=== PATIENT | female | born 1990 ===

== ENCOUNTER 2019-04-04 20:48 | Inpatient (IN) | payer MEDICAID ==
[2019-04-04 21:03] VITALS: BMI 35.1
[2019-04-04] MEDS ORDERED: Sodium Chloride 0.9% 1,000 ML IV STA ×2 (21:38→22:49)
[2019-04-04 22:00] LABS: BASO # 0.03 K/mm3 (0.0-2.0); BASO % 0.2 % (0.0-3.0); HEMOGLOBIN 11.7 g/dL (12.0-16.0); LYMPH # 1.4 (1.2-3.4); LYMPH % 8.8 % (22.0-35.0); MEAN CELL VOLUME 82.4 fl (80.0-105.0); MEAN CORPUSCULAR HEMOGLOBIN 28.3 pg (25.0-35.0); MEAN CORPUSCULAR HGB CONC 34.3 g/dl (31.0-37.0); MONO # 0.9 (0.1-0.6); MONO % 5.6 % (1.0-6.0); RBC 4.14 10^6/uL (3.5-6.1); WHITE BLOOD COUNT 15.8 10^3/uL (4.5-11.0)
[2019-04-04 22:05] LABS: PH,URINE 6.5 (4.7-8.0); URINE BILIRUBIN SMALL (NEGATIVE); URINE BLOOD MODERATE (NEGATIVE); URINE GLUCOSE (UA) NEGATIVE (NEGATIVE); URINE LEUKOCYTE ESTERASE LARGE Leu/uL (NEGATIVE); URINE PROTEIN 30 mg/dL (<30 mg/dL)
[2019-04-04 22:06] LABS: URINE APPEARANCE SLIGHT-CLOUDY (CLEAR); URINE COLOR YELLOW (YELLOW)
--- NOTE | 2019-04-04 22:07 | ED PDOC ---
Arrival/HPI <Gene Reed - Last Filed: 04/05/19 00:35> - General Historian: Patient - History of Present Illness Narrative History of Present Illness (Text): 04/04/19 22:03 28 y/o female with no significant PMH presents to the ED c/o right sided back pain, fever, and vomiting x 3 days. Pt saw PMD 3 days ago and was prescribed ibuprofen, flexeril, and zofran as well as given a steroid shot in the office for back pain. Admits to 2-3 episodes of nonbloody, nonbilious emesis daily. Today developed SOB with pleuritic substernal chest pain. Currently menstruat ing. No recent travel, immobilization, surgery, history of cancer, or OCP use. Denies hematemesis, cough, hemoptysis, calf pain/swelling, palpitations, headache, dizziness, vision changes, urinary symptoms, saddle anesthesia, incontinence, or any other associated symptoms. <Yuli Hernandez - Last Filed: 04/05/19 03:15> - General Chief Complaint: Fever Time Seen by Provider: 04/04/19 20:56 Past Medical History - Provider Review Nursing Documentation Reviewed: Yes - Infectious Disease Hx of Infectious Diseases: None - Genitourinary/Gynecological Other/Comment: fibroids - Psychiatric Hx Substance Use: No - Surgical History Hx Section: Yes - Anesthesia Hx Anesthesia: No <Yuli Hernandez - Last Filed: 04/05/19 03:15> Family/Social History - Physician Review Nursing Documentation Reviewed: Yes Family/Social History: Unknown Family HX Smoking Status: Former Smoker Hx Alcohol Use: No Hx Substance Use: No <Yuli Hernandez - Last Filed: 04/05/19 03:15> Allergies/Home Meds <Gene Reed - Last Filed: 04/05/19 00:35> <Yuli Hernandez - Last Filed: 04/05/19 03:15> Allergies/Adverse Reactions: Allergies No Known Allergies Allergy (Verified 04/04/19 21:03) Review of Systems - Review of Systems Constitutional: Fevers Eyes: Normal. absent: Vision Changes, Eye Pain ENT: Normal. absent: Sore Throat, Sinus Congestion Respiratory: SOB. absent: Cough, Sputum, Wheezing Cardiovascular: Chest Pain. absent: Palpitations, Syncope Gastrointestinal: Nausea, Vomiting. absent: Abdominal Pain Genitourinary Female: Normal. absent: Dysuria, Frequency, Vaginal Bleeding, Vaginal Discharge Musculoskeletal: Back Pain Skin: Normal. absent: Rash Neurological: Normal. absent: Headache, Dizziness, Focal Weakness <Yuli Hernandez - Last Filed: 04/05/19 03:15> Physical Exam Vital Signs Temp Pulse Resp BP Pulse Ox 04/04/19 22:20 101.4 F H 04/04/19 21:25 98.6 F 123 H 18 148/82 94 L <Gene Reed - Last Filed: 04/05/19 00:35> Vital Signs Reviewed: Yes Vital Signs Temp Pulse Resp Pulse Ox 04/04/19 21:25 98.6 F 123 H 18 94 L Temperature: Afebrile Blood Pressure: Normal Pulse: Regular Respiratory Rate: Normal Appearance: Positive for: Non-Toxic, Ill-Appearing, Uncomfortable Pain Distress: None Mental Status: Positive for: Alert and Oriented X 3 - Systems Exam Head: Present: Atraumatic, Normocephalic Pupils: Present: PERRL Extroacular Muscles: Present: EOMI Conjunctiva: Present: Normal Mouth: Present: Moist Mucous Membranes Neck: Present: Normal Range of Motion. No: Meningeal Signs Respiratory/Chest: Present: Good Air Exchange, Rhonchi (intermittent in left lower lobe). No: Respiratory Distress, Accessory Muscle Use Cardiovascular: Present: Regular Rate and Rhythm, Normal S1, S2, Peripheal Pulses Present Abdomen: Present: Normal Bowel Sounds. No: Tenderness, Distention, Peritoneal Signs Back: Present: CVA Tenderness (right) Upper Extremity: Present: Normal Inspection, Normal ROM, NORMAL PULSES, Neurovascularly Intact, Capillary Refill < 2s. No: Cyanosis, Edema, Temperature Abnormalties Lower Extremity: Present: Normal Inspection, NORMAL PULSES, Normal ROM, Neurovascularly Intact, Capillary Refill < 2 s. No: Edema, Temperature Abnormalties Neurological: Present: GCS=15, CN II-XII Intact, Speech Normal, Motor Func Grossly Intact, Normal Sensory Function, Gait Normal Skin: Present: Warm, Dry, Normal Color. No: Rashes Psychiatric: Present: Alert, Oriented x 3, Normal Insight, Normal Concentration, Normal Affect, Normal Mood <Yuli Hernandez - Last Filed: 04/05/19 03:15> Medical Decision Making - Lab Interpretations Lab Results: pO2 44 mm/Hg (30-55) 04/04/19 21:55 VBG pH 7.47 (7.32-7.43) H 04/04/19 21:55 VBG pCO2 29.0 (40-60) L 04/04/19 21:55 VBG HCO3 21.1 mmol/l (21-28) 04/04/19 21:55 VBG Total CO2 22.0 mmol.L (22-28) 04/04/19 21:55 VBG O2 Sat (Calc) 81.9 % (40-65) H 04/04/19 21:55 VBG Base Excess -1.5 mmol/L (0.0-2.0) L 04/04/19 21:55 VBG Potassium 2.8 mmol/L (3.6-5.2) L 04/04/19 21:55 Sodium 132.0 mmol/L (132-148) 04/04/19 21:55 Chloride 100.0 mmol/L (98-107) 04/04/19 21:55 Glucose 97 mg/dl (65-105) 04/04/19 21:55 Lactate 1.6 mmol/L (0.7-2.1) 04/04/19 21:55 FiO2 21.0 % 04/04/19 21:55 Crit Value Called To Scout 04/04/19 21:55 Crit Value Called By Penny 04/04/19 21:55 Blood Gas Notified Time 220804/04/19 21:55 PT 16.9 SECONDS (9.4-12.5) H 04/04/19 21:56 INR 1.52 04/04/19 21:56 APTT 26.9 Seconds (26.9-38.3) 04/04/19 21:56 D-Dimer, Quantitative 2023 ng/mlDDU (0-243) H 04/04/19 21:56 Troponin I < 0.01 ng/mL 04/04/19 21:56 Total Bilirubin 2.6 mg/dL (0.2-1.3) H 04/04/19 21:56 AST 61 U/L (14-36) H 04/04/19 21:56 ALT 43 U/L (7-56) 04/04/19 21:56 Alkaline Phosphatase 296 U/L (38-126) H 04/04/19 21:56 Total Protein 6.6 g/dL (5.8-8.3) 04/04/19 21:56 Albumin 3.0 g/dL (3.0-4.8) 04/04/19 21:56 Globulin 3.7 gm/dL 04/04/19 21:56 Albumin/Globulin Ratio 0.8 (1.1-1.8) L 04/04/19 21:56 Lipase 45 U/L (23-300) 04/04/19 21:56 Urine Color Yellow (YELLOW) 04/04/19 21:56 Urine Appearance Slight-cloudy (CLEAR) 04/04/19 21:56 Urine pH 6.5 (4.7-8.0) 04/04/19 21:56 Ur Specific [place] 1.010 (1.005-1.035) 04/04/19 21:56 Urine Protein 30 mg/dL (<30 mg/dL) H 04/04/19 21:56 Urine Glucose (UA) Negative mg/dL (NEGATIVE) 04/04/19 21:56 Urine Ketones 15 mg/dL (NEGATIVE) H 04/04/19 21:56 Urine Blood Moderate (NEGATIVE) H 04/04/19 21:56 Urine Nitrate Negative (NEGATIVE) 04/04/19 21:56 Urine Bilirubin Small (NEGATIVE) H 04/04/19 21:56 Urine Urobilinogen 2.0 E.U./dL (<1 E.U./dL) H 04/04/19 21:56 Ur Leukocyte Esterase Large Y[place]ani/uL (NEGATIVE) H 04/04/19 21:56 Urine RBC 5 - 10 /hpf (0-2) H 04/04/19 21:56 Urine WBC 15 - 20 /hpf (0-6) H 04/04/19 21:56 Ur Epithelial Cells 4 - 5 /hpf (0-5) 04/04/19 21:56 Urine Bacteria Mod /hpf (NONE) 04/04/19 21:56 - RAD Interpretation Radiology Orders: 04/04/19 21:37 ABD & PELVIS IV CONTRAST ONLY [CT] Stat 04/04/19 22:24 ANGIO CHEST PE PROTOCOL [CT] Stat 04/04/19 22:46 ABDOMEN COMPLETE [US] Stat - Medication Orders Current Medication Orders: Sodium Chloride (Sodium Chloride 0.9%) 1,000 mls @ 999 mls/hr IV .Q1H1M STA Stop: 04/04/19 23:49 Potassium Chloride (Potassium Chloride 20 Meq/100 Ml) 20 meq in 100 mls @ 50 mls/hr IVPB ONCE ONE Stop: 04/05/19 00:49 Potassium Chloride (K-Dur 20 Meq Er Tab) 40 meq PO STAT STA Stop: 04/04/19 22:49 Discontinued Medications Acetaminophen (Tylenol 325mg Tab) 975 mg PO STAT STA Stop: 04/04/19 22:12 Last Admin: 04/04/19 22:15 Dose: 975 mg Sodium Chloride (Sodium Chloride 0.9%) 1,000 mls @ 999 mls/hr IV .Q1H1M STA Stop: 04/04/19 22:38 Last Admin: 04/04/19 22:14 Dose: 999 mls/hr eMAR Start Stop Document 04/04/19 22:14 SS (Rec: 04[facility]04/19 22:14 [id number] Solution Start Date 04/04/19 Start Time 21:00 End Date 04/04/19 End time 22:00 Total Infusion Time 60 Ketorolac Tromethamine (Toradol) 30 mg IVP STAT STA Stop: 04/04/19 21:39 Last Admin: 04/04/19 22:14 Dose: 30 mg MAR Pain Assessment Document 04/04/19 22:14 SS (Rec: 04/04/19 22:14 [id number] Pain Reassessment Is this a pain reassessment? No Presence of Pain Presence of Pain Yes IVP Administration Document 04/04/19 22:14 SS (Rec: 04/04/19 22:14 SS [id number]) Charges for Administration # of IVP Administrations 1 Metoclopramide HCl (Reglan) 10 mg IVP STAT STA Stop: 04/04/19 21:39 Last Admin: 04/04/19 22:14 Dose: 10 mg IVP Administration Document 04/04/19 22:14 SS (Rec: 04/04/19 22:14 [id number] Charges for Administration # of IVP Administrations 1 <Gene Reed - Last Filed: 04/05/19 00:35> ED Course and Treatment: Initial Plan: * Labs * UA * EKG * CXR * IVF, Toradol, Reglan 22:02 CBC reviewed, leukocytosis at 15 with left shift, anemia at 11.7 22:11 Blood gas reviewed. Lactate < 2. No indication for code sepsis. Rectal temp elevated at 101.4, tylenol ordered. 22:33 Dimer elevated, will get CTA chest. CXR cancelled. Urine shows blood, leuk esterase. No nitrates 23:00 Potassium 3.0. 40mEq KCl PO ordered in addition to 20mEq KCl IV Bilirubin elevated, direct bili ordered with RUQ ultrasound. 00:30 CT shows 7.8mm right sided kidney stone with associated hydronephrosis and a left sided pneumonia. Negative for pulmonary embolism. Will admit for IV antibiotics and urology consultation. 00:[address] Gonzalez and director medical science who accepted patient for inpatient admission with diagnoses of pneumonia, nephrolithiasis with hydronephrosis, hypokalemia, elevated bilirubin, and SIRS. Pt updated with change in disposition. Continues with tachycardia, but improved from triage. Reports improvement in pain. - Lab Interpretations Lab Results: 04/04/19 21:56 04/04/19 21:56 Lab Results 04/04/19 21:56: Sodium 133, Chloride 101, Potassium 3.0 L, Carbon Dioxide 19 L, Anion Gap 16, BUN 11, Creatinine 1.1, Est GFR ( Amer) > 60, Est GFR (Non- Af Amer) 59, Random Glucose 97, Calcium 8.4, Total Bilirubin 2.6 H, AST 61 H, ALT 43, Alkaline Phosphatase 296 H, Lactate Dehydrogenase 850 H, Total Creatine Kinase 23 L, Troponin I < 0.01, Total Protein 6.6, Albumin 3.0, Globulin 3.7, Albumin/Globulin Ratio 0.8 L, Lipase 45 04/04/19 21:56: Urine Color Yellow, Urine Appearance Slight-cloudy, Urine pH 6.5, Ur Specific [place] 1.010, Urine Protein 30 H, Urine Glucose (UA) Negative, Urine Ketones 15 H, Urine Blood Moderate H, Urine Nitrate Negative, Urine Bilirubin Small H, Urine Urobilinogen 2.0 H, Ur Leukocyte Esterase Large H, Urine RBC 5 - 10 H, Urine WBC 15 - 20 H, Ur Epithelial Cells 4 - 5, Urine Bacteria Mod 04/04/19 21:56: PT 16.9 H, INR 1.52, APTT 26.9, D-Dimer, Quantitative 2022 H 04/04/19 21:56: WBC 15.8 H, RBC 4.14, Hgb 11.7 L, Hct 34.1 L, MCV 82.4, MCH 28.3, MCHC 34.3, RDW 14.0, Plt Count 220, MPV 11.0, Neut % (Auto) 85.4 H, Lymph % (Auto) 8.8 L, [place] % (Auto) 5.6, Eos % (Auto) 0.0 L, Baso % (Auto) 0.2, Lymph # (Auto) 1.4, [place] # (Auto) 0.9 H, Eos # (Auto) 0.0, Baso # (Auto) 0.03, Absolute Neuts (auto) 13.50 H 04/04/19 21:55: pO2 44, VBG pH 7.47 H, VBG pCO2 29.0 L, VBG HCO3 21.1, VBG Total CO2 22.0, VBG O2 Sat (Calc) 81.9 H, VBG Base Excess -1.5 L, VBG Potassium 2.8 L , Sodium 132.0, Chloride 100.0, Glucose 97, Lactate 1.6, FiO2 21.0, Crit Value Called To Scout, Crit Value Called By [facility], Blood Gas Notified Time 2208, Venous Blood Potassium 2.8 L I have reviewed the lab results: Yes - RAD Interpretation Narrative RAD Interpretations (Text): EXAM: CTA Chest with Intravenous Contrast for Pulmonary Embolism FINDINGS: PULMONARY ARTERIES No evidence of central or segmental pulmonary embolism is seen. AORTA There is no evidence for aneurysm or dissection of the thoracic aorta. LUNGS Pneumonic consolidation is seen in the posterior left lower lobe. PLEURAL SPACES No pneumothorax evident. No pleural effusions. HEART Heart size is within normal limits. No pericardial effusion. LYMPH NODES No lymphadenopathy is evident. BONES No focal osseous abnormality or acute fracture. UPPER ABDOMEN Images of the upper abdomen demonstrate hepatomegaly. The liver measured 18.4 cm in the midclavicular line. Additionally, there is splenomegaly noted. The spleen measured 15.2 x 6.1 cm in longitudinal and transverse dimensions respectively. IMPRESSION: 1. No identification of PE. Posterior left lower lobe pneumonic consolidation. 3. Hepatomegaly. 4. Splenomegaly. Electronically signed on April 04, 2019 11:52:40 PM EDT by: Amos Kelly M.D., M.B.A., Certified By [employer] Trained MRI and CT Specialist EXAM: CT Abdomen and Pelvis with IV contrast FINDINGS: LUNG BASES: Pneumonic consolidation is seen in the posterior left lower lobe. No pleural effusions are seen. LIVER: Hepatomegaly is noted. The liver measured 18.3 cm in the midclavicular line. GALLBLADDER AND BILE DUCTS: The gallbladder appears within normal limits. No radioopaque gallstones are seen. No biliary ductal dilatation is evident. PANCREAS: Unremarkable. SPLEEN: Splenomegaly is identified. The spleen measures 15.0 x 6.1 cm in longitudinal and transverse dimensions respectively. ADRENAL GLANDS: Unremarkable. KIDNEYS, URETERS, AND BLADDER: The kidneys appear within normal limits. There is moderate right hydronephrosis and hydroureter present. Multiple tiny non-obstructing bilateral renal calculi are present located at the cortical-medullary junction. The possibility of renal tubular acidosis should be considered. An obstructing 7.8 mm calculus is seen in the proximal right ureter. The urinary bladder appeared normal in size and configuration. STOMACH AND BOWEL: Unremarkable appearance of the stomach. No evidence of bowel obstruction. Mucosal wall thickening is seen throughout the small intestinal tract; extending into the ascending colon with fluid in the lumen compatible with diffuse enteritis and colitis of the ascending colon. Infectious or inflammatory etiologies are thought most likely. APPENDIX: No evidence of acute appendicitis on CT examination. PERITONEUM: No free fluid. No free air. LYMPH NODES: No lymphadenopathy is evident. REPRODUCTIVE: Large calcified pedunculated uterine masses are present; probably compatible with fibroids. VASCULATURE: No evidence of abdominal aortic aneurysm. BONES: No aggressive appearing osseous lesion. No acute osseous pathology evident. IMPRESSIN: 1. Evidence of diffuse enteritis and colitis of the ascending colon. 2. An obstructing 7.8 mm calculus is noted in the proximal right ureter causing moderate right hydronephrosis/hydroureter. 3. Numerous tiny non-obstructing bilateral renal calculi are present. The possibility of renal tubular acidosis should be considered. 4. Pneumonic consolidation is seen in the posterior left lower lobe. 5. Hepatomegaly. 6. Splenomegaly. 7. Large pedunculated calcified uterine masses likely compatible with fibroids. Electronically signed on April 05, 2019 12:07:54 AM EDT by: Amos Kelly M.D., M.B.A., Certified By [employer] Trained MRI and CT Specialist Abdominal Ultrasound Clinical statement: Pain, elevated liver function tests. Comparison: CT, 04/04/2019 Findings: The liver demonstrates increased echotexture and echogenicity, and is enlarged measuring up to 20.8 cm in diameter. There is normal portal venous blood flow. The gallbladder is unremarkable. The common bile duct measures 6 mm and is within normal limits. The pancreas demonstrates normal contour and appearance. The spleen is enlarged, measuring up to 14.2 cm in diameter. The right kidney measures 14.0 cm in length and the left kidney measures 13.8 cm in length. There is mild right-sided hydronephrosis. There is no evidence of nephrolithiasisthere is a left renal collecting system is unremarkable. The visualized portions of the aorta and inferior vena cava are within normal limits. No ascites are seen. Impression: 1. Hepatosplenomegaly. 2. Fatty infiltration of the liver. 3. The gallbladder is unremarkable. 4. Mild right-sided hydronephrosis. Electronically signed on April 05, 2019 12:51:18 AM EDT by: Maeve Bueno M.D., Certified by JEFFERY, MSK, Neuroradiology Radiology Orders: 04/04/19 21:37 ABD & PELVIS IV CONTRAST ONLY [CT] Stat 04/04/19 21:53 CXR (PA/LAT) [CHEST TWO VIEWS (PA/LAT)] [RAD] Stat Surgical Pathologist: Radiologist - EKG Interpretation EKG Interpretation (Text): 04/04/19 23:14 Rate 114; Sinus tachycardia; Normal interval and axis; No STEMI or other signs of acute ischemia Interpreted by ED Physician: Yes Type: 12 lead EKG - Medication Orders Current Medication Orders: Sodium Chloride (Sodium Chloride 0.9%) 1,000 mls @ 999 mls/hr IV .Q1H1M STA Stop: 04/04/19 22:38 Discontinued Medications Ketorolac Tromethamine (Toradol) 30 mg IVP STAT STA Stop: 04/04/19 21:39 Metoclopramide HCl (Reglan) 10 mg IVP STAT STA Stop: 04/04/19 21:39 <Yuli Hernandez - Last Filed: 04/05/19 03:15> - PA / [employer]INK[employer] / Resident Statement / has reviewed & agrees with the documentation as recorded. / has examined the patient and agrees with the treatment plan. <Gene Reed - Last Filed: 04/05/19 00:35> Disposition/Present on Arrival <Gene Reed - Last Filed: 04/05/19 00:35> - Present on Arrival Any Indicators Present on Arrival: No History of DVT/PE: No History of Uncontrolled Diabetes: No Urinary Catheter: No History of Decub. Ulcer: No History Surgical Site Infection Following: None - Disposition Have Diagnosis and Disposition been Completed?: Yes Disposition Time: 00:32 Patient Plan: Admission <Yuli Hernandez - Last Filed: 04/05/19 03:15> - Disposition Diagnosis: Pneumonia, Nephrolithiasis, UTI (urinary tract infection), Hydronephrosis, Hypokalemia, Elevated bilirubin Disposition: HOSPITALIZED Patient Problems: Current Active Problems Problem Status Onset Elevated bilirubin Acute Hydronephrosis Acute Hypokalemia Acute Nephrolithiasis Acute Pneumonia Acute UTI (urinary tract infection) Acute Condition: STABLE
[2019-04-04 22:09] LABS: VENOUS BLOOD GAS BASE EXCESS -1.5 mmol/L (0.0-2.0); VENOUS BLOOD GAS PO2 44 mm/Hg (30-55); VENOUS BLOOD PH 7.47 (7.32-7.43)
[2019-04-04 22:15] LABS: URINE BACTERIA MOD /hpf; URINE WBC 15 - 20 /hpf (0-6)
[2019-04-04 22:16] LABS: INR 1.52; PARTIAL THROMBOPLASTIN TIME 26.9 Seconds (26.9-38.3); PROTHROMBIN TIME 16.9 SECONDS (9.4-12.5)
[2019-04-04 22:21] LABS: TROPONIN I < 0.01 ng/mL
[2019-04-04 22:44] LABS: ALB/GLOB RATIO 0.8 (1.1-1.8); ALT/SGPT 43 U/L (7-56); AST/SGOT 61 U/L (14-36); BLOOD UREA NITROGEN 11 mg/dL (7-21); CALCIUM 8.4 mg/dL (8.4-10.5); GFR NON-AFRICAN AMERICAN 59; LIPASE 45 U/L (23-300)
[2019-04-04] MEDS ORDERED: Potassium Chloride 20 mEq ER Tab PO STA (22:48)
[2019-04-04] MEDS ORDERED: Iohexol 350 MG/100 ML VIAL ONE (22:54)
[2019-04-04] MEDS ORDERED: Piperacillin/Tazobact 3.375 gm 100 ML IVPB STA (23:39)
[2019-04-04] MEDS ORDERED: Piperacill/Tazo 4.5gm in NS 4.5 GM/100 ML BAG IVPB STA (23:44)
[2019-04-05] MEDS ORDERED: Azithromycin 500MG/NS 250ml 500 MG/250 ML BAG IVPB STA (00:30)
[2019-04-05] MEDS ORDERED: cefTRIAXone 1 gm 1 GM/100 ML BAG IVPB STA (00:30)
--- NOTE | 2019-04-05 00:47 | CP.PCM.HP ---
<Russ Simental - Last Filed: 04/05/19 01:57> History of Present Illness - History of Present Illness History of Present Illness: Russ Simental, PGY1 H&P for Dr. Gonzalez cc: "back pain, fever, vomiting x2 weeks" Patient is a 28 y/o female with no significant PMHx who presents to the ED c/o back pain, fever, and vomiting x2 weeks duration. Symptoms have been worsening in the past few days. Patient went to an urgent care center 3 days ago and was given ibuprofen, flexeril, and a steroid injection for her low back pain. She says her pain, fever, and vomiting did not improve. Vomiting is non-bloody and non-bilious. Last episode of vomiting was this afternoon. She denies constipation/diarrhea. She also has a cough as well. Denies sick contacts or recent travel history. 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 She has pleuritic chest pain due to her cough. She is also menstruating at this time. Denies recent surgeries, immobilization, OCP use, headache, unintentional weight loss, night sweats, fatigue, bloody stools, or changes in bowel/bladder. Given all these symptoms, she does have poor PO intake in the past few days. Last visit to the ED was for drainage of R-armpit abscess (2015). A full 12 point ROS was conducted and unremarkable except as stated above. PMD: Meg Richard PMHx: none PSHx: (01/2019) Meds: see MAR Allergies: NKDA SocialHx: denies EtOH, smoking, and illicit drug use. Stay at home home. FamHx: mother has asthma and HTN. Present on Admission - Present on Admission Any Indicators Present on Admission: No Review of Systems - Review of Systems All systems: reviewed and no additional remarkable complaints except (as per HPI) Past Patient History - Infectious Disease Hx of Infectious Diseases: None - Past Social History Smoking Status: Former Smoker - GENITOURINARY/GYNECOLOGICAL Other/Comment: fibroids - PSYCHIATRIC Hx Substance Use: No - SURGICAL HISTORY Hx Section: Yes - ANESTHESIA Hx Anesthesia: No Meds Allergies/Adverse Reactions: Allergies Allergy/AdvReac Type Severity Reaction Status Date / Time No Known Allergies Allergy Verified 04/04/19 21:03 Physical Exam - Constitutional Appears: In Acute Distress - Head Exam Head Exam: ATRAUMATIC, NORMAL INSPECTION, NORMOCEPHALIC - Eye Exam Eye Exam: EOMI, Normal appearance, PERRL Pupil Exam: NORMAL ACCOMODATION - ENT Exam ENT Exam: Mucous Membranes Dry - Respiratory Exam Respiratory Exam: Clear to Auscultation Bilateral. absent: Chest Wall Tenderness, Rales, Rhonchi, Wheezes, Respiratory Distress - Cardiovascular Exam Cardiovascular Exam: REGULAR RHYTHM, +S1, +S2 - GI/Abdominal Exam GI & Abdominal Exam: Normal Bowel Sounds, Organomegaly, Soft. absent: Guarding, Rebound, Rigid, Tenderness - Extremities Exam Extremities exam: Positive for: normal capillary refill, normal inspection, pedal pulses present. Negative for: calf tenderness, pedal edema, tenderness Additional comments: Negative Petros sign. - Back Exam Back exam: CVA tenderness (R) - Neurological Exam Neurological exam: Alert, CN II-XII Intact, Oriented x3 - Psychiatric Exam Psychiatric exam: Normal Affect, Normal Mood - Skin Skin Exam: Dry, Intact, Normal Color, Warm Results - Vital Signs Recent Vital Signs: Last Vital Signs Temp 98.5 F 04/04/19 23:14 Pulse 100 H 04/04/19 23:23 Resp 18 04/04/19 23:23 BP 148/82 04/04/19 23:23 Pulse Ox 94 L 04/04/19 23:23 - Labs Result Diagrams: 04/04/19 21:56 04/04/19 21:56 Labs: Laboratory Results - last 24 hr 04/04/19 04/04/19 04/04/19 21:55 21:56 21:56 WBC 15.8 H RBC 4.14 Hgb 11.7 L Hct 34.1 L MCV 82.4 MCH 28.3 MCHC 34.3 RDW 14.0 Plt Count 220 MPV 11.0 Neut % (Auto) 85.4 H Lymph % (Auto) 8.8 L [place] % (Auto) 5.6 Eos % (Auto) 0.0 L Baso % (Auto) 0.2 Lymph # (Auto) 1.4 [place] # (Auto) 0.9 H Eos # (Auto) 0.0 Baso # (Auto) 0.03 Absolute Neuts (auto) 13.50 H PT 16.9 H INR 1.52 APTT 26.9 D-Dimer, Quantitative 2023 H pO2 44 VBG pH 7.47 H VBG pCO2 29.0 L VBG HCO3 21.1 VBG Total CO2 22.0 VBG O2 Sat (Calc) 81.9 H VBG Base Excess -1.5 L VBG Potassium 2.8 L Sodium 132.0 Chloride 100.0 Glucose 97 Lactate 1.6 FiO2 21.0 Crit Value Called To [place] Crit Value Called By [facility] Blood Gas Notified Time 2208 Potassium Carbon Dioxide Anion Gap BUN Creatinine Est GFR ( Amer) Est GFR (Non-Af Amer) Random Glucose Calcium Total Bilirubin Direct Bilirubin AST ALT Alkaline Phosphatase Lactate Dehydrogenase Total Creatine Kinase Troponin I Total Protein Albumin Globulin Albumin/Globulin Ratio Lipase Venous Blood Potassium 2.8 L Urine Color Urine Appearance Urine pH Ur Specific [place] Urine Protein Urine Glucose (UA) Urine Ketones Urine Blood Urine Nitrate Urine Bilirubin Urine Urobilinogen Ur Leukocyte Esterase Urine RBC Urine WBC Ur Epithelial Cells Urine Bacteria 04/04/19 04/04/19 04/04/19 21:56 21:56 23:04 WBC RBC Hgb Hct MCV MCH MCHC RDW Plt Count MPV Neut % (Auto) Lymph % (Auto) [place] % (Auto) Eos % (Auto) Baso % (Auto) Lymph # (Auto) [place] # (Auto) Eos # (Auto) Baso # (Auto) Absolute Neuts (auto) PT INR APTT D-Dimer, Quantitative pO2 VBG pH VBG pCO2 VBG HCO3 VBG Total CO2 VBG O2 Sat (Calc) VBG Base Excess VBG Potassium Sodium 133 Chloride 101 Glucose Lactate FiO2 Crit Value Called To Crit Value Called By Blood Gas Notified Time Potassium 3.0 L Carbon Dioxide 19 L Anion Gap 16 BUN 11 Creatinine 1.1 Est GFR ( Amer) > 60 Est GFR (Non-Af Amer) 59 Random Glucose 97 Calcium 8.4 Total Bilirubin 2.6 H Direct Bilirubin 2.3 H AST 61 H ALT 43 Alkaline Phosphatase 296 H Lactate Dehydrogenase 850 H Total Creatine Kinase 23 L Troponin I < 0.01 Total Protein 6.6 Albumin 3.0 Globulin 3.7 Albumin/Globulin Ratio 0.8 L Lipase 45 Venous Blood Potassium Urine Color Yellow Urine Appearance Slight-cloudy Urine pH 6.5 Ur Specific [place] 1.010 Urine Protein 30 H Urine Glucose (UA) Negative Urine Ketones 15 H Urine Blood Moderate H Urine Nitrate Negative Urine Bilirubin Small H Urine Urobilinogen 2.0 H Ur Leukocyte Esterase Large H Urine RBC 5 - 10 H Urine WBC 15 - 20 H Ur Epithelial Cells 4 - 5 Urine Bacteria Mod Assessment & Plan - Assessment and Plan (Free Text) Assessment: Patient is a 28 y/o female with no significant PMHx who presents to the ED c/o back pain, fever, and vomiting x2 weeks duration. Plan: Sepsis 2/2 CAP and UTI - SIRS met (fever, tachy, leukocytosis) with source: PNA and UTI - Rocephin and azithro - acetaminophen prn for fevers - ID consulted - UA: cloudy, mod blood, small bili, large LE, 15-20 wbc - blood cx - urine cx - procal - trop neg x1 - CTA Chest: negative for PE. LLL PNA - D-dimer 2022 Obstructing Nephrolithiasis - NPO - Strain urine calculi - Flomax - Toradol 15mg IVP q6 prn for moderate pain control - Morphine 2mg IVP q6 prn for severe pain control - IVF NS @ 100 cc/hr - Rocephin and azithro - zofran prn for nausea - Urology consulted - CT A/P: obstructing 7.8 mm calculus is noted in the proximal right ureter causing moderate right hydronephrosis/hydroureter. Numerous tiny non-obstructing bilateral renal calculi are present. Hepatomegaly. Splenomegaly. Large pedunculated calcified uterine masses like compatible with fibroids. Hypokalemia 2/2 Vomiting - K 3.0 in ED - replete as needed; monitor Liver Enzyme Abnormalities - Tbili 2.6; Direct Bili 2.3; ALP 296 - Evaluate with Abdominal US Anemia 2/2 Menstruation - Hgb 11.7; baseline unknown - No signs of active bleeding ppx: - ptx - scd Diet: NPO Dispo: Admit patient to telemetry. Further recs from Urology and ID. At this time, will c/w NPO, IVF, and antibiotics. Case was discussed and reviewed with Attending Physician, Dr. Gonzalez <Martin Gonzalez - Last Filed: 04/05/19 03:01> Results - Vital Signs Recent Vital Signs: Last Vital Signs Temp 97.9 F 04/05/19 01:57 Pulse 97 H 04/05/19 01:57 Resp 14 04/05/19 01:57 BP 138/78 04/05/19 01:57 Pulse Ox 97 04/05/19 01:57 - Labs Result Diagrams: 04/04/19 21:56 04/04/19 21:56 Labs: Laboratory Results - last 24 hr 04/04/19 04/04/19 04/04/19 21:55 21:56 21:56 WBC 15.8 H RBC 4.14 Hgb 11.7 L Hct 34.1 L MCV 82.4 MCH 28.3 MCHC 34.3 RDW 14.0 Plt Count 220 MPV 11.0 Neut % (Auto) 85.4 H Lymph % (Auto) 8.8 L [place] % (Auto) 5.6 Eos % (Auto) 0.0 L Baso % (Auto) 0.2 Lymph # (Auto) 1.4 [place] # (Auto) 0.9 H Eos # (Auto) 0.0 Baso # (Auto) 0.03 Absolute Neuts (auto) 13.50 H PT 16.9 H INR 1.52 APTT 26.9 D-Dimer, Quantitative 2022 H pO2 44 VBG pH 7.47 H VBG pCO2 29.0 L VBG HCO3 21.1 VBG Total CO2 22.0 VBG O2 Sat (Calc) 81.9 H VBG Base Excess -1.5 L VBG Potassium 2.8 L Sodium 132.0 Chloride 100.0 Glucose 97 Lactate 1.6 FiO2 21.0 Crit Value Called To [place] Crit Value Called By [facility] Blood Gas Notified Time 2208 Potassium Carbon Dioxide Anion Gap BUN Creatinine Est GFR ( Amer) Est GFR (Non-Af Amer) Random Glucose Calcium Total Bilirubin Direct Bilirubin AST ALT Alkaline Phosphatase Lactate Dehydrogenase Total Creatine Kinase Troponin I Total Protein Albumin Globulin Albumin/Globulin Ratio Lipase Venous Blood Potassium 2.8 L Urine Color Urine Appearance Urine pH Ur Specific [place] Urine Protein Urine Glucose (UA) Urine Ketones Urine Blood Urine Nitrate Urine Bilirubin Urine Urobilinogen Ur Leukocyte Esterase Urine RBC Urine WBC Ur Epithelial Cells Urine Bacteria 04/04/19 04/04/19 04/04/19 21:56 21:56 23:04 WBC RBC Hgb Hct MCV MCH MCHC RDW Plt Count MPV Neut % (Auto) Lymph % (Auto) [place] % (Auto) Eos % (Auto) Baso % (Auto) Lymph # (Auto) [place] # (Auto) Eos # (Auto) Baso # (Auto) Absolute Neuts (auto) PT INR APTT D-Dimer, Quantitative pO2 VBG pH VBG pCO2 VBG HCO3 VBG Total CO2 VBG O2 Sat (Calc) VBG Base Excess VBG Potassium Sodium 133 Chloride 101 Glucose Lactate FiO2 Crit Value Called To Crit Value Called By Blood Gas Notified Time Potassium 3.0 L Carbon Dioxide 19 L Anion Gap 16 BUN 11 Creatinine 1.1 Est GFR ( Amer) > 60 Est GFR (Non-Af Amer) 59 Random Glucose 97 Calcium 8.4 Total Bilirubin 2.6 H Direct Bilirubin 2.3 H AST 61 H ALT 43 Alkaline Phosphatase 296 H Lactate Dehydrogenase 850 H Total Creatine Kinase 23 L Troponin I < 0.01 Total Protein 6.6 Albumin 3.0 Globulin 3.7 Albumin/Globulin Ratio 0.8 L Lipase 45 Venous Blood Potassium Urine Color Yellow Urine Appearance Slight-cloudy Urine pH 6.5 Ur Specific [place] 1.010 Urine Protein 30 H Urine Glucose (UA) Negative Urine Ketones 15 H Urine Blood Moderate H Urine Nitrate Negative Urine Bilirubin Small H Urine Urobilinogen 2.0 H Ur Leukocyte Esterase Large H Urine RBC 5 - 10 H Urine WBC 15 - 20 H Ur Epithelial Cells 4 - 5 Urine Bacteria Mod Attending/Attestation - Attestation I have personally seen and examined this patient.: Yes I have fully participated in the care of the patient.: Yes I have reviewed all pertinent clinical information: Yes Notes (Text): 04/05/19 03:00 Patient was seen when she was in [facility]. Medical record was reviewed. Agree with history, physical examination, assessment and plan.
[2019-04-05] MEDS ORDERED: Morphine 2 mg/ml ISec IVP PRN (01:20)
[2019-04-05] MEDS: Sodium Chloride 0.9% 1,000 ML IV SCH ×3 (01:56→14:53)
[2019-04-05 08:28] LABS: HEMOGLOBIN 11.4 g/dL (12.0-16.0); MEAN CELL VOLUME 82.3 fl (80.0-105.0); MEAN PLATELET VOLUME 10.4 fl (7.0-11.0); RBC 4.07 10^6/uL (3.5-6.1); RED CELL DISTRIBUTION WIDTH 14.3 % (11.5-14.5); WHITE BLOOD COUNT 17.9 10^3/uL (4.5-11.0)
[2019-04-05 08:57] LABS: ALB/GLOB RATIO 0.8 (1.1-1.8); ALBUMIN 2.7 g/dL (3.0-4.8); ALT/SGPT 40 U/L (7-56); AST/SGOT 56 U/L (14-36); BILIRUBIN,DIRECT 2.3 mg/dL (0.0-0.4); BLOOD UREA NITROGEN 10 mg/dL (7-21); GFR NON-AFRICAN AMERICAN > 60
--- NOTE | 2019-04-05 10:32 | RAD ---
Date of service: 04/05/2019 HISTORY: Kidney, Uterus, Bladder COMPARISON: Correlations made to CT scan of the abdomen pelvis performed 04/04/2019. TECHNIQUE: 1 view obtained. FINDINGS: BOWEL: Normal. No obstruction. No free air. BONES: Normal. OTHER FINDINGS: Right larger than left bilateral renal calculi. Large calcified uterine fibroid. IMPRESSION: Bilateral nephrolithiasis. Large calcified uterine fibroid.
[2019-04-05] MEDS: Potassium Chloride 20 mEq ER Tab PO SCH ×2 (10:47→13:15)
--- NOTE | 2019-04-05 11:52 | CARD ---
APPROVED REPORT Date of service: 04/04/2019 EKG Measurement Heart [id number] <Conclusion> Sinus tachycardia Otherwise normal ECG
--- NOTE | 2019-04-05 12:37 | CT ---
Date of service: 04/04/2019 PROCEDURE: CT Abdomen and Pelvis with contrast HISTORY: right sided flank pain, fever COMPARISON: None. TECHNIQUE: Contrast dose: 100 mL Omnipaque 350 Radiation dose: Total exam DLP = 1093.77 mGy-cm. This CT exam was performed using one or more of the following dose reduction techniques: Automated exposure control, adjustment of the mA and/or kV according to patient size, and/or use of iterative reconstruction technique. FINDINGS: LOWER THORAX: Unremarkable. LIVER: Unremarkable. No gross lesion or ductal dilatation. GALLBLADDER AND BILE DUCTS: Unremarkable. PANCREAS: Unremarkable. No gross lesion or ductal dilatation. SPLEEN: Unremarkable. ADRENALS: Unremarkable. No mass. KIDNEYS AND URETERS: Obstructive 8 x 6 mm proximal right ureteral calculus causing mild to moderate right hydroureteronephrosis. Urothelial enhancement of the proximal ureter may be reactive, although infection cannot be excluded. Mild left hydroureteronephrosis may be related to mass effect from enlarged uterus with large calcified uterine fibroids. Additional bilateral nonobstructive renal calculi. No solid mass. VASCULATURE: Unremarkable. No aortic aneurysm. No aortic atherosclerotic calcification or mural plaque present. BOWEL: Small hiatal hernia. No obstruction. No gross mural thickening. APPENDIX: No findings to suggest acute appendicitis PERITONEUM: Small fat containing umbilical hernia. No free fluid. No free air. LYMPH NODES: Unremarkable. No enlarged lymph nodes. BLADDER: Unremarkable. REPRODUCTIVE: Large periphery calcified right subserosal and left fundal subserosal fibroids. Uterus and adnexa otherwise unremarkable. BONES: No acute fracture. OTHER FINDINGS: None. IMPRESSION: Obstructive proximal right ureteral 8 x 6 mm calculus causing mild to moderate right hydroureteronephrosis. Urothelial enhancement of the proximal right ureter may be reactive, although infection cannot be excluded. Additional nonobstructive right renal calculi. Mild left hydroureteronephrosis, likely related to mass effect from large uterine fibroids in the pelvis. Nonobstructive left renal calculi. Large peripherally calcified uterine fibroids.
--- NOTE | 2019-04-05 12:39 | CT ---
Date of service: 04/04/2019 PROCEDURE: CT Chest with contrast (Pulmonary Angiogram) HISTORY: elevated dimer, SOB COMPARISON: None available. TECHNIQUE: Axial computed tomography images were obtained of the chest in the pulmonary arterial phase of enhancement. Coronal and sagittal reformatted images were created and reviewed. Intravenous contrast dose: 100 mL Omnipaque 350 Radiation dose: Total exam DLP = 427.52 mGy-cm. This CT exam was performed using one or more of the following dose reduction techniques: Automated exposure control, adjustment of the mA and/or kV according to patient size, and/or use of iterative reconstruction technique. FINDINGS: PULMONARY ARTERIES: Unremarkable. No pulmonary embolism. AORTA: No acute findings. No thoracic aortic aneurysm. No aortic atherosclerotic calcification or mural plaque present. LUNGS: Patchy opacities in the left lower lobe may be related to infiltrate versus over-hydration. PLEURAL SPACES: Unremarkable. No effusion or pneumothorax. HEART: Unremarkable. No cardiomegaly. No significant pericardial effusion. LYMPH NODES: No lymphadenopathy. BONES, CHEST WALL: Unremarkable. No fracture or destructive lesion OTHER FINDINGS: Unremarkable. IMPRESSION: Unremarkable CT pulmonary angiogram. No pulmonary embolus. Patchy opacities in the left lower lobe may be related to infiltrate versus over-hydration.
--- NOTE | 2019-04-05 12:43 | US ---
Date of service: 04/04/2019 HISTORY: RUQ focused, elevated LFTs COMPARISON: None. TECHNIQUE: Sonographic evaluation of the abdomen. FINDINGS: LIVER: Measures 20.8 cm. Normal echogenicity of the liver parenchyma. No mass. No intrahepatic bile duct dilatation. GALLBLADDER: Unremarkable. No gallstones. COMMON BILE DUCT: Measures 6 mm. No stones. No dilatation. PANCREAS: Unremarkable as visualized. No mass. No ductal dilatation. RIGHT KIDNEY: Measures 14.0 x 5.7 x 5.7cm. Normal echogenicity. Multiple tiny calculi. Mild hydronephrosis. LEFT KIDNEY: Measures 13.8 x 5.8 x 5.4cm. Normal echogenicity. No calculus, mass, or hydronephrosis. SPLEEN: Enlarged, measuring 14.2 x 5.9 x 5.9. AORTA: No aneurysmal dilatation. IVC: Unremarkable. OTHER FINDINGS: None. IMPRESSION: Hepatosplenomegaly. Mild right hydronephrosis. Right nephrolithiasis.
[2019-04-05] MEDS ORDERED: cefTRIAXone 1 gm 1 GM/100 ML BAG IVPB SCH (13:00)
[2019-04-05] MEDS ORDERED: Azithromycin 500MG/NS 250ml 500 MG/250 ML BAG IVPB SCH (14:00)
--- NOTE | 2019-04-05 20:20 | CON ---
DATE OF CONSULTATION: 04/05/2019 The patient is seen in Room 275, Bed 2. CHIEF COMPLAINT: Right flank pain times several days and the patient also had fevers for over a week she states. HISTORY OF PRESENT ILLNESS: This is a 28-year-old female who was originally born in [facility] and who has no significant past medical history, presenting with a right flank pain and fever and vomiting. The patient states she was given medication, she went to an urgent center, and nurse practitioner gave her a steroid shot in her back for her back pain. The patient is not having any dysuria or frequency. However, she did have right-sided flank pain associated with fevers and vomiting. She also had complained of shortness of breath. The patient is currently having menstrual periods. She did have a D and C 3 months ago. She had no recent travel. She had no immobilization. No recent surgery other than the D and C 3 months ago. No headaches. PAST MEDICAL HISTORY: The patient states that she has no significant past medical history. She has a in the past, D and C 3 months ago. She is having her menstrual period now. States she has had her menstrual period since then. SOCIAL HISTORY: She lives with her significant other. They have two children, the youngest child is 1 year old and there is an older child. No one else is sick at home. They had no recent travel. They do have a dog. She has never had any sexually transmitted diseases. The father of the children has never had any sexually transmitted diseases and that she is in a long-time monogamous relationship with him. MEDICATIONS: She is on Bactrim as outpatient and now is taking Keflex according to her she does not remember what medication she was on and Motrin. ALLERGIES: THE PATIENT HAS NO KNOWN ALLERGIES. REVIEW OF SYSTEMS: The patient's 12-point review of systems is performed. PHYSICAL EXAMINATION: GENERAL: The patient is in bed, answering questions appropriately. VITAL SIGNS: Temperature of 99, T-max is 101.4 with a heart rate of 105, respiratory rate of 20, it was up to 21, and blood pressure of 120/80. HEENT: Unremarkable. NECK: Supple. LUNGS: Decreased breath sounds. HEART: Normal S1, S2. ABDOMEN: Soft. No rebound or guarding. She does have right-sided CVA tenderness. LABORATORY EXAMINATION: White count of 15,800, hemoglobin of 11, platelets of 220,000, and coagulation is noted. She has does have an elevated D-dimer. ABGs are noted. Chemistries reveal a BUN of 11 and creatinine of 1.1. Alk phos is 296. LDH is 850. LFTs are mildly elevated. Potassium is low. Urinalysis reveals 15-20 wbc's, moderate bacteria, large leukocyte esterase. Microbiology is pending. The patient had a CAT scan of the abdomen and pelvis, the results are pending. The patient had a CAT scan of the chest, the results are pending. History and physical examination is reviewed. Emergency room results are reviewed. ASSESSMENT/PLAN: The patient is a 28-year-old female who is originally from [facility], now presents with sepsis with a probable right pyelonephritis with a right obstructing kidney stone with right hydronephrosis. She does have pulmonary symptoms, questionable left lower lobe pneumonia, community-acquired pneumonia. We will treat the patient with ceftriaxone and Zithromax. We will order an abdominal ultrasound. CAT scan of the abdomen is already done, we will check on those results. CAT scan of the chest was already done, pending Legionella mycoplasma workup, procalcitonin, blood cultures, urine cultures. We will order an HIV on this patient, haptoglobin and retic count to rule out hemolysis, ESPERANZA workup, vasculitis and urology evaluation. We will make further recommendations pending initial workup results and follow closely with you. Delvin Garcia MD
[2019-04-06] MEDS ORDERED: Vancomycin 1gm in NS 250ml 1 GM/250 ML BAG IVPB SCH (06:45)
[2019-04-06] MEDS: Sodium Chloride 0.9% 1,000 ML IV SCH ×3 (06:48→20:24)
[2019-04-06 07:42] LABS: HEMOGLOBIN 10.7 g/dL (12.0-16.0); MEAN CORPUSCULAR HEMOGLOBIN 27.9 pg (25.0-35.0); MEAN CORPUSCULAR HGB CONC 33.6 g/dl (31.0-37.0); MEAN PLATELET VOLUME 11.1 fl (7.0-11.0); RBC 3.83 10^6/uL (3.5-6.1); RED CELL DISTRIBUTION WIDTH 14.7 % (11.5-14.5)
[2019-04-06 07:45] LABS: ALB/GLOB RATIO 0.7 (1.1-1.8); ALBUMIN 2.6 g/dL (3.0-4.8); ALT/SGPT 35 U/L (7-56); AST/SGOT 49 U/L (14-36); BLOOD UREA NITROGEN 12 mg/dL (7-21); CALCIUM 8.2 mg/dL (8.4-10.5); GFR NON-AFRICAN AMERICAN > 60
[2019-04-06] MEDS ORDERED: Propofol 10 mg/ml Inj (20 ML) ONE (09:01)
[2019-04-06] MEDS ORDERED: Iohexol 240 (50 ml) ONE (09:39)
[2019-04-06] MEDS ORDERED: Gentamicin 80 mg in 0.9% NS 80 MG/100 ML BAG IVPB ONE (09:39)
[2019-04-06] MEDS ORDERED: Midazolam 2 MG/2 ML VIAL ONE (09:43)
[2019-04-06] MEDS ORDERED: HYDROmorphone 0.5 mg/0.5 ml ISec IVP PRN (10:03)
[2019-04-06] MEDS ORDERED: Lactated Ringer's 1,000 ML IV SCH (10:15)
--- NOTE | 2019-04-06 11:14 | CP.PCM.PN ---
<Navi Gibbons - Last Filed: 04/06/19 11:10> Subjective - Date & Time of Evaluation Date of Evaluation: 04/06/19 Time of Evaluation: 11:10 - Subjective Subjective: Navi Gibbons, PGY-1, Internal Medicine Progress Note for Dr. Riojas Patient seen and evaluated at bedside. Patient had no acute overnight events. Patient has been afebrile overnight. Patient reports improvement in abdominal and flank pain. However, patient did have episodes of NBNB vomitus. 12-point ROS was unremarkable except for what was mentioned above. Objective - Vital Signs/Intake and Output Vital Signs (last 24 hours): Temp Pulse Resp BP Pulse Ox 98.1 F 70 16 158/96 H 95 04/06/19 09:55 04/06/19 10:25 04/06/19 10:25 04/06/19 10:25 04/06/19 10:25 Intake and Output: 04/06/19 04/06/19 06:59 18:59 Intake Total 2160 100 Output Total 1400 Balance 760 100 - Medications Medications: Current Medications Acetaminophen (Tylenol 325mg Tab) 650 mg PO Q6H PRN PRN Reason: Fever >100.4 F Hydromorphone HCl (Dilaudid) 0.5 mg IVP Q15M PRN PRN Reason: Pain, Moderate/Severe (4-10) Stop: 04/06/19 12:04 Sodium Chloride (Sodium Chloride 0.9%) 1,000 mls @ 100 mls/hr IV .Q10H [facility] Last Admin: 04/06/19 06:48 Dose: 100 mls/hr Ceftriaxone Sodium (Rocephin 2 Gm Ivpb) 2 gm in 100 mls @ 100 mls/hr IVPB DAILY [facility]; Protocol Stop: 04/15/19 10:01 Lactated Ringer's (Lactated Ringer's) 1,000 mls @ 75 mls/hr IV .[id number] [facility] Stop: 04/06/19 12:16 Ibuprofen (Motrin Tab) 600 mg PO Q6H PRN PRN Reason: Bladder Spasm Morphine Sulfate (Morphine) 2 mg IVP Q6 PRN PRN Reason: Pain, severe (8-10) Ondansetron HCl (Zofran Inj) 4 mg IVP Q4H PRN PRN Reason: Nausea/Vomiting Last Admin: 04/06/19 07:53 Dose: 4 mg Ondansetron HCl (Zofran Inj) 4 mg IVP ONCE PRN PRN Reason: Nausea/Vomiting Pantoprazole Sodium (Protonix Inj) 40 mg IVP DAILY [facility] Last Admin: 04/05/19 09:20 Dose: 40 mg Tamsulosin HCl (Flomax) 0.4 mg PO DAILY [facility] Last Admin: 04/05/19 09:20 Dose: 0.4 mg - Labs Labs: 04/06/19 07:00 04/06/19 07:00 PT 16.9 SECONDS (9.4-12.5) H 04/04/19 21:56 INR 1.52 04/04/19 21:56 APTT 26.9 Seconds (26.9-38.3) 04/04/19 21:56 - Constitutional Appears: Well, Non-toxic, No Acute Distress - Head Exam Head Exam: ATRAUMATIC, NORMAL INSPECTION, NORMOCEPHALIC - Eye Exam Eye Exam: EOMI, PERRL - ENT Exam ENT Exam: Mucous Membranes Moist - Respiratory Exam Respiratory Exam: Clear to Ausculation Bilateral, NORMAL BREATHING PATTERN - Cardiovascular Exam Cardiovascular Exam: REGULAR RHYTHM, RRR, +S1, +S2. absent: Clicks, Gallop, Rubs - GI/Abdominal Exam GI & Abdominal Exam: Soft, Tenderness (right sided), Normal Bowel Sounds. absent: Distended, Firm, Guarding - Extremities Exam Extremities Exam: Full ROM, Normal Capillary Refill, Normal Inspection - Back Exam Back Exam: CVA tenderness (R) - Neurological Exam Neurological Exam: Alert, Awake, CN II-XII Intact, Oriented x3 - Skin Skin Exam: Dry, Intact, Normal Color Assessment and Plan - Assessment and Plan (Free Text) Assessment: 28 year old female with no relevant PMH presents with right sided abdominal and flank pain. CT abdomen and pelvis showed obstructive proximal right ureteral 8x6 calculus causing mild to moderate right hydroureteronephrosis. Plan: Sepsis 2/2 to CAP vs. UTI -Patient was febrile with leukocytosis on admission -Leukocytosis trending down -Blood culture: Strep Agalactiae -UA: moderate blood, large LE, negative nitrate, moderate bacteria, 4-5 epithelial cells -Abdominal CT 04/04: obstructive proximal right ureteral 8x6 mm calculus causing mild to moderate right hydroureteronephrosis. Urothelial enhancement of proximal right ureter may be reactive, although infection cannot be excluded. Additional nonobstructive right renal calculi. Mild left hydronephrosis likely from mass effect of large uterine fibroids. Nonobstructive left renal calculi. -Abdominal X ray 04/04: bilateral nephrolithiasis, large calcified uterine fibroid -Chest CT: patchy opacities in left lower lobe due to infiltrate vs. overhydration -Procal: 3.07 -Follow up HIV, M. Pneumonia, ESPERANZA for vasculitis cause, protein electrophoresis and bence chacko protein for rule out of multiple myeloma -Follow up echocardiogram to rule out endocarditis -As a result, sepsis likely 2/2 to UTI -Continue with ceftriaxone for UTI started on 04/06 likely causing bacteremia Obstructive nephrolithiasis -Abdominal CT: obstructive proximal right ureteral 8x6 mm calculus causing mild to moderate right hydroureteronephrosis. Urothelial enhancement of proximal right ureter may be reactive, although infection cannot be excluded. Additional nonobstructive right renal calculi. Mild left hydronephrosis likely from mass effect of large uterine fibroids. Nonobstructive left renal calculi. -Stent placement by Dr. Gay 04/06 to assist with removal of renal calculi -Continue with sufficient hydration with NS at 100cc/hr -Continue with flomax 0.4 mg daily -Continue with morphine 2 Q6 PRN for pain -Continue with zofran 4 Q4 for nausea -Start motrin PRN for bladder spasm -Continue with strain urine calculi Transaminitis 2/2 to hepatosplenomegaly from undetermined etiology -Abdominal Ultrasound: hepatosplenomegaly, mild right hydronephrosis, right nephrolithiasis -Elevated haptoglobin, normal retic count, elevated LDH. Inconsistent picture for hemolytic anemia -AST, ALP improving. Bilirubin elevation resolved -Continue to monitor Nonspecific elevated D-dimer -Patient has no calf tenderness -CTA shows no evidence of PE Hypokalemia -likely from vomitus -resolved -replete as necessary GI prophylaxis: protonix DVT prophylaxis: SCD Patient plan discussed with Dr. Riojas <Gulshan Riojas - Last Filed: 04/06/19 11:55> Objective - Vital Signs/Intake and Output Vital Signs (last 24 hours): Temp Pulse Resp BP Pulse Ox 97.8 F 73 18 142/94 H 95 04/06/19 11:32 04/06/19 11:32 04/06/19 11:32 04/06/19 11:32 04/06/19 10:25 Intake and Output: 04/06/19 04/06/19 06:59 18:59 Intake Total 2160 100 Output Total 1400 Balance 760 100 - Medications Medications: Current Medications Acetaminophen (Tylenol 325mg Tab) 650 mg PO Q6H PRN PRN Reason: Fever >100.4 F Hydromorphone HCl (Dilaudid) 0.5 mg IVP Q15M PRN PRN Reason: Pain, Moderate/Severe (4-10) Stop: 04/06/19 12:04 Sodium Chloride (Sodium Chloride 0.9%) 1,000 mls @ 100 mls/hr IV .Q10H [facility] Last Admin: 04/06/19 06:48 Dose: 100 mls/hr Ceftriaxone Sodium (Rocephin 2 Gm Ivpb) 2 gm in 100 mls @ 100 mls/hr IVPB DAILY [facility]; Protocol Stop: 04/15/19 10:01 Last Admin: 04/06/19 11:45 Dose: 100 mls/hr Lactated Ringer's (Lactated Ringer's) 1,000 mls @ 75 mls/hr IV .[id number] [facility] Stop: 04/06/19 12:16 Ibuprofen (Motrin Tab) 600 mg PO Q6H PRN PRN Reason: Bladder Spasm Morphine Sulfate (Morphine) 2 mg IVP Q6 PRN PRN Reason: Pain, severe (8-10) Ondansetron HCl (Zofran Inj) 4 mg IVP Q4H PRN PRN Reason: Nausea/Vomiting Last Admin: 04/06/19 07:53 Dose: 4 mg Ondansetron HCl (Zofran Inj) 4 mg IVP ONCE PRN PRN Reason: Nausea/Vomiting Pantoprazole Sodium (Protonix Inj) 40 mg IVP DAILY [facility] Last Admin: 04/06/19 11:45 Dose: 40 mg Tamsulosin HCl (Flomax) 0.4 mg PO DAILY [facility] Last Admin: 04/06/19 11:46 Dose: 0.4 mg - Labs Labs: 04/06/19 07:00 04/06/19 07:00 PT 16.9 SECONDS (9.4-12.5) H 04/04/19 21:56 INR 1.52 04/04/19 21:56 APTT 26.9 Seconds (26.9-38.3) 04/04/19 21:56 Attending/Attestation - Attestation I have personally seen and examined this patient.: Yes I have fully participated in the care of the patient.: Yes I have reviewed all pertinent clinical information, including history, physical exam and plan: Yes Notes (Text): 04/06/19 11:46 28 year old female with no significant past medical history who presented with complaint of right sided flank pain, fever and cough. CT showed obstructive proximal right ureteral calculus with mild to moderate right hydroureteronephrosis, large fibroid uterus and LLL infiltrate. Leukocytosis from admission is improving. Procalcitonin was elevated. BCx is growing group B strep agalactiae. Continue with iv antibiotics as per ID. Patient is on rocephin, azithromycin and vancomycin. Echo is pending. Imaging also showed hepatosplenomegaly. Further workup including vasculitis and MM workup ordered as well by ID. Urology is following as well and plan is for cystoscopy possibly today. Recommended outpatient medical assistant ob gyn follow up for fibroid uterus. Gulshan Rijoas MD Hospitalist.
[2019-04-06] MEDS: cefTRIAXone 2 GM IN NS 2 GM/100 ML BAG IVPB SCH (11:45)
[2019-04-06 19:58] LABS: HEMOGLOBIN 11.9 g/dL (12.0-16.0)
[2019-04-07] MEDS: Sodium Chloride 0.9% 1,000 ML IV SCH ×2 (05:55→15:36)
[2019-04-07 07:06] LABS: HEMOGLOBIN 10.8 g/dL (12.0-16.0); MEAN CELL VOLUME 83.3 fl (80.0-105.0); MEAN CORPUSCULAR HEMOGLOBIN 27.8 pg (25.0-35.0); MEAN CORPUSCULAR HGB CONC 33.3 g/dl (31.0-37.0); MEAN PLATELET VOLUME 10.5 fl (7.0-11.0); RBC 3.89 10^6/uL (3.5-6.1); RED CELL DISTRIBUTION WIDTH 14.8 % (11.5-14.5); WHITE BLOOD COUNT 6.2 10^3/uL (4.5-11.0)
[2019-04-07 07:36] LABS: ALB/GLOB RATIO 0.7 (1.1-1.8); ALBUMIN 2.5 g/dL (3.0-4.8); ALT/SGPT 41 U/L (7-56); AST/SGOT 57 U/L (14-36); BLOOD UREA NITROGEN 10 mg/dL (7-21); CALCIUM 8.2 mg/dL (8.4-10.5); GFR NON-AFRICAN AMERICAN > 60
--- NOTE | 2019-04-07 09:24 | RAD ---
Date of service: 04/07/2019 HISTORY: sob COMPARISON: No prior. TECHNIQUE: 1 view obtained. FINDINGS: LUNGS: Pulmonary vascular congestion. No focal consolidation. PLEURA: No significant pleural effusion identified, no pneumothorax apparent. CARDIOVASCULAR: No aortic atherosclerotic calcification present. Normal cardiac size. No pulmonary vascular congestion. OSSEOUS STRUCTURES: No significant abnormalities. VISUALIZED UPPER ABDOMEN: Normal. OTHER FINDINGS: None. IMPRESSION: Pulmonary vascular congestion. No focal consolidation or pleural effusion.
--- NOTE | 2019-04-07 09:34 | PN ---
DATE: 04/07/2019 SUBJECTIVE: The patient is in bed, in no acute distress, nontoxic. She is doing better, less pain. OBJECTIVE: VITAL SIGNS: Temperature is 98, blood pressure is 140/90, respiratory rate of 18. HEENT: Unremarkable. NECK: Supple. LUNGS: Have decreased breath sounds. HEART: Normal S1, S2. ABDOMEN: Soft, nontender. LABORATORY EXAMINATION: Reveals the blood cultures are positive for group B Strep agalactiae same in the urine culture, and repeat cultures are pending. The patient is on ceftriaxone and echo is pending. Also pending to rule out endocarditis in addition to a sed rate and C-reactive protein. ASSESSMENT AND PLAN: This is a 28-year-old female who is admitted with sepsis, with group B Strep bacteremia, group B Strep right pyelonephritis with a right obstructing kidney stone with right hydronephrosis. Currently on ceftriaxone, must rule out endocarditis. We will check on repeat blood cultures and echo, sed rate, and C-reactive protein. If the repeat cultures are negative and echo is negative and inflammatory markers are low, will be able to switch to p.o. antibiotics to complete 14 days. We will follow with you. Delvin Garcia MD
[2019-04-07] MEDS: cefTRIAXone 2 GM IN NS 2 GM/100 ML BAG IVPB SCH (10:04)
--- NOTE | 2019-04-07 11:26 | CP.PCM.PN ---
<Navi Gibbons - Last Filed: 04/07/19 11:22> Subjective - Date & Time of Evaluation Date of Evaluation: 04/07/19 Time of Evaluation: 11:23 - Subjective Subjective: Navi Gibbons, PGY-1, Internal Medicine Progress Note for Dr. Rg Patient seen and evaluated at bedside. Patient had no acute overnight events. Patient had small blood clot in urine yesterday after procedure. Today, patient reports shortness of breath, cough, and small blood from nose after starting nasal cannula overnight. 12-point ROS was unremarkable except for what was mentioned above. Objective - Vital Signs/Intake and Output Vital Signs (last 24 hours): Temp Pulse Resp BP Pulse Ox 98.1 F 72 19 145/93 H 99 04/07/19 06:00 04/07/19 06:00 04/07/19 06:00 04/07/19 06:00 04/07/19 06:00 Intake and Output: 04/07/19 04/07/19 06:59 18:59 Intake Total 2400 Output Total 1400 Balance 1000 - Medications Medications: Current Medications Acetaminophen (Tylenol 325mg Tab) 650 mg PO Q6H PRN PRN Reason: Fever >100.4 F Sodium Chloride (Sodium Chloride 0.9%) 1,000 mls @ 100 mls/hr IV .Q10H [facility] Last Admin: 04/07/19 05:55 Dose: 100 mls/hr Ceftriaxone Sodium (Rocephin 2 Gm Ivpb) 2 gm in 100 mls @ 100 mls/hr IVPB DAILY [facility]; Protocol Stop: 04/15/19 10:01 Last Admin: 04/07/19 10:04 Dose: 100 mls/hr Ibuprofen (Motrin Tab) 600 mg PO Q6H PRN PRN Reason: Bladder Spasm Morphine Sulfate (Morphine) 2 mg IVP Q6 PRN PRN Reason: Pain, severe (8-10) Ondansetron HCl (Zofran Inj) 4 mg IVP Q4H PRN PRN Reason: Nausea/Vomiting Last Admin: 04/06/19 07:53 Dose: 4 mg Ondansetron HCl (Zofran Inj) 4 mg IVP ONCE PRN PRN Reason: Nausea/Vomiting Pantoprazole Sodium (Protonix Inj) 40 mg IVP DAILY [facility] Last Admin: 04/07/19 10:04 Dose: 40 mg Tamsulosin HCl (Flomax) 0.4 mg PO DAILY [facility] Last Admin: 04/07/19 10:04 Dose: 0.4 mg - Labs Labs: 04/07/19 06:30 04/07/19 06:30 PT 16.9 SECONDS (9.4-12.5) H 04/04/19 21:56 INR 1.52 04/04/19 21:56 APTT 26.9 Seconds (26.9-38.3) 04/04/19 21:56 - Constitutional Appears: Well, Non-toxic, No Acute Distress - Head Exam Head Exam: ATRAUMATIC, NORMAL INSPECTION, NORMOCEPHALIC - Eye Exam Eye Exam: EOMI, PERRL - ENT Exam ENT Exam: Mucous Membranes Moist - Respiratory Exam Respiratory Exam: Clear to Ausculation Bilateral, NORMAL BREATHING PATTERN - Cardiovascular Exam Cardiovascular Exam: REGULAR RHYTHM, RRR, +S1, +S2. absent: Clicks, Gallop, Rubs - GI/Abdominal Exam GI & Abdominal Exam: Soft, Tenderness (right sided), Normal Bowel Sounds. absent: Distended, Firm, Guarding - Extremities Exam Extremities Exam: Full ROM, Normal Capillary Refill, Normal Inspection - Back Exam Back Exam: CVA tenderness (R) - Neurological Exam Neurological Exam: Alert, Awake, CN II-XII Intact, Oriented x3 - Skin Skin Exam: Dry, Intact, Normal Color Assessment and Plan - Assessment and Plan (Free Text) Assessment: 28 year old female with no relevant PMH presents with right sided abdominal and flank pain. CT abdomen and pelvis showed obstructive proximal right ureteral 8x6 calculus causing mild to moderate right hydroureteronephrosis. Ureteral stent was placed by Dr. Gay on 04/07. Plan: Sepsis 2/2 to CAP vs. UTI -Patient was febrile with leukocytosis on admission -Leukocytosis resolved -Blood culture 04/04: Strep Agalactiae sensitive to ampicillin, levofloaxicin, moxifloaxicin, penicillin -UA 04/04: moderate blood, large LE, negative nitrate, moderate bacteria, 4-5 epithelial cells -UCx: Strep Agalactiae -Abdominal CT 04/04: obstructive proximal right ureteral 8x6 mm calculus causing mild to moderate right hydroureteronephrosis. Urothelial enhancement of proximal right ureter may be reactive, although infection cannot be excluded. Additional nonobstructive right renal calculi. Mild left hydronephrosis likely from mass effect of large uterine fibroids. Nonobstructive left renal calculi. -Abdominal X ray 04/04: bilateral nephrolithiasis, large calcified uterine fibroid -Chest CT 04/04: patchy opacities in left lower lobe due to infiltrate vs. overhydration -Procal: 3.07 -Mycoplasma, urine legionella negative -Follow up HIV, ESPERANZA for vasculitis cause, protein electrophoresis and bence chacko protein for rule out of multiple myeloma -Follow up echocardiogram to rule out endocarditis -As a result, sepsis likely 2/2 to UTI -Will repeat blood culture to evaluate for antibiotic efficacy for bacteremia -Continue with ceftriaxone for UTI started on 04/06 likely causing bacteremia Obstructive nephrolithiasis -Abdominal CT 04/04: obstructive proximal right ureteral 8x6 mm calculus causing mild to moderate right hydroureteronephrosis. Urothelial enhancement of proximal right ureter may be reactive, although infection cannot be excluded. Additional nonobstructive right renal calculi. Mild left hydronephrosis likely from mass e ffect of large uterine fibroids. Nonobstructive left renal calculi. -Stent placement by Dr. Gay 04/06 to assist with removal of renal calculi -Continue with sufficient hydration with NS at 100cc/hr -Continue with flomax 0.4 mg daily -Continue with morphine 2 Q6 PRN for pain -Continue with zofran 4 Q4 for nausea -Start motrin 600 Q6 PRN for bladder spasm -Continue with strain urine calculi Shortness of breath -Likely 2/2 to pain from nephrolithiasis -Manage pain control with morphine PRN, motrin PRN Transaminitis 2/2 to hepatosplenomegaly from undetermined etiology -Abdominal Ultrasound: hepatosplenomegaly, mild right hydronephrosis, right nephrolithiasis -Elevated haptoglobin, normal retic count, elevated LDH. Inconsistent picture fo r hemolytic anemia -AST, ALP improving -Continue to monitor Nonspecific elevated D-dimer -Patient has no calf tenderness -CTA shows no evidence of PE Hypokalemia -likely from vomitus -resolved -replete as necessary GI prophylaxis: protonix DVT prophylaxis: SCD Patient plan discussed with Dr. Rg <Randall Rg - Last Filed: 04/07/19 14:46> Objective - Vital Signs/Intake and Output Vital Signs (last 24 hours): Temp Pulse Resp BP Pulse Ox 98.2 F 82 19 171/109 H 99 04/07/19 11:49 04/07/19 11:49 04/07/19 11:49 04/07/19 11:49 04/07/19 06:00 Intake and Output: 04/07/19 04/07/19 06:59 18:59 Intake Total 2400 Output Total 1400 Balance 1000 - Medications Medications: Current Medications Acetaminophen (Tylenol 325mg Tab) 650 mg PO Q6H PRN PRN Reason: Fever >100.4 F Sodium Chloride (Sodium Chloride 0.9%) 1,000 mls @ 100 mls/hr IV .Q10H [facility] Last Admin: 04/07/19 05:55 Dose: 100 mls/hr Ceftriaxone Sodium (Rocephin 2 Gm Ivpb) 2 gm in 100 mls @ 100 mls/hr IVPB DAILY [facility]; Protocol Stop: 04/15/19 10:01 Last Admin: 04/07/19 10:04 Dose: 100 mls/hr Ibuprofen (Motrin Tab) 600 mg PO Q6H PRN PRN Reason: Bladder Spasm Morphine Sulfate (Morphine) 2 mg IVP Q6 PRN PRN Reason: Pain, severe (8-10) Ondansetron HCl (Zofran Inj) 4 mg IVP Q4H PRN PRN Reason: Nausea/Vomiting Last Admin: 04/06/19 07:53 Dose: 4 mg Ondansetron HCl (Zofran Inj) 4 mg IVP ONCE PRN PRN Reason: Nausea/Vomiting Pantoprazole Sodium (Protonix Inj) 40 mg IVP DAILY [facility] Last Admin: 04/07/19 10:04 Dose: 40 mg Tamsulosin HCl (Flomax) 0.4 mg PO DAILY [facility] Last Admin: 04/07/19 10:04 Dose: 0.4 mg - Labs Labs: 04/07/19 06:30 04/07/19 06:30 PT 16.9 SECONDS (9.4-12.5) H 04/04/19 21:56 INR 1.52 04/04/19 21:56 APTT 26.9 Seconds (26.9-38.3) 04/04/19 21:56 Attending/Attestation - Attestation I have personally seen and examined this patient.: Yes I have fully participated in the care of the patient.: Yes I have reviewed all pertinent clinical information, including history, physical exam and plan: Yes Notes (Text): 04/07/19 14:37 Patient was seen and examined with nuclear medical tech. 28 year old female with no significant past medical history was admitted with right sided flank pain, fever and cough. CT abdomen and Pelvis showed obstructive proximal right ureteral calculus with mild to moderate right hydroureteronephrosis, large fibroid uterus and LLL i nfiltrate. Procalcitonin was elevated. Blood cultures and urine cultures are growing group B strep agalactiae. Continue with iv antibiotics as per ID. Urology is following as well and patient is s/p cysto with right ureter stent placed yesterday. Repeat blood cultures were drawn yesterday, we will follow up cultures. Echo is pending. Today patient was c/o dyspnea on exertion, chest X rays showed congestion, we will stop IV fluid, will check Pro BNP and will give 40 mg of IV lasix.We will follow up Echo. Management plan was discussed in detail with patient. Education was provided. 04/07/19 14:45
[2019-04-08 06:09] LABS: HEMOGLOBIN 11.7 g/dL (12.0-16.0); MEAN CELL VOLUME 84.5 fl (80.0-105.0); MEAN CORPUSCULAR HEMOGLOBIN 27.5 pg (25.0-35.0); MEAN CORPUSCULAR HGB CONC 32.6 g/dl (31.0-37.0); MEAN PLATELET VOLUME 10.4 fl (7.0-11.0); RBC 4.25 10^6/uL (3.5-6.1); RED CELL DISTRIBUTION WIDTH 14.8 % (11.5-14.5); WHITE BLOOD COUNT 5.4 10^3/uL (4.5-11.0)
[2019-04-08 07:14] LABS: ALB/GLOB RATIO 0.8 (1.1-1.8); ALBUMIN 3.2 g/dL (3.0-4.8); ALT/SGPT 44 U/L (7-56); AST/SGOT 63 U/L (14-36); BLOOD UREA NITROGEN 9 mg/dL (7-21); CALCIUM 9.1 mg/dL (8.4-10.5); GFR NON-AFRICAN AMERICAN > 60
[2019-04-08 08:26] VITALS: O2SAT 99
--- NOTE | 2019-04-08 08:28 | PN ---
DATE: 04/06/2019 SUBJECTIVE: The patient was seen in bed, in no acute distress. The patient is still having pain. Temperature is down. PHYSICAL EXAMINATION: VITAL SIGNS: Temperature is 98, blood pressure is 140/70, respiratory rate of 21 and heart rate of 94. HEENT: Unremarkable. NECK: Supple. LUNGS: Have decreased breath sounds. HEART: Normal S1 and S2. ABDOMEN: Soft and nontender. LABORATORY EXAMINATION: Reveals the patient's white count is down to 12,000 and hemoglobin of 10. Coagulations are noted. Chemistry reveals the BUN of 12 and creatinine 1.0. Procalcitonin is 3. Urinalysis is noted 15-20. Urine legionella antigen is negative. Microbiology reveals a group B Streptococcus agalactiae bacteremia and group B Streptococcus in the blood and urine. ASSESSMENT AND PLAN: A 28-year-old female, [facility], who was admitted with sepsis with group B Streptococcus agalactiae bacteremia secondary to group B Streptococcus urine and pyelonephritis with a 7 mm of stone obstructing with hydronephrosis. We will treat the patient with ceftriaxone and treat his pyelonephritis. The patient is scheduled for urology procedure and stent placement and we will order an echocardiogram and the patient's human immunodeficiency virus is pending. We will follow with you. We will treat the patient with ceftriaxone 2 g daily. Delvin Garcia MD
--- NOTE | 2019-04-08 08:35 | OP ---
PROCEDURE DATE: 04/07/2019 UROLOGY OPERATIVE NOTE Please see the consultation note and see the history and physical. PREOPERATIVE DIAGNOSES: Obstructive uropathy secondary to a 7-mm stone, urosepsis, blood borne sepsis with positive cultures. POSTOPERATIVE DIAGNOSES: Obstructive uropathy, secondary to a 7-mm stone, urosepsis, blood borne sepsis with positive cultures. PROCEDURE: Exam under anesthesia, cystoscopy, retrograde pyelogram, insertion of a double-J stent. SURGEON: Adebayo Gay MD COMPLICATIONS: There were no complications. FINDINGS: The findings are that of stone, hydronephrosis. No other appreciable abnormalities. ESTIMATED BLOOD LOSS: Less than 10 mL. INDICATIONS FOR THE PROCEDURE: See history and physical. See consultation note. After long discussion with the Infectious Disease, Dr. Garcia, this morning, the patient was admitted with pneumonia. See the consultation note. It is really a two-week history of back pain, I do not know if she has been splinting to lead to pneumonia or the like, but she has basically an obstructive stone with hydronephrosis with blood cultures that are positive with a gram-positive cocci. At this point, we do not have an organism, there is a possibility of an enterococcus and a stone. There is a possibility of pneumococcus from pneumonia, but, in this otherwise, healthy 28-year-old lady, my recommendation is that we proceed with this procedure and to do it gently, quickly, and carefully as possible. I discussed with Infectious Disease, . I have discussed with anesthesia the concerns of sepsis and hypotension and bottoming out. I have discussed with the anesthesiologist today, Dr. Adams. After discussing all these options with the patient, I also discussed the risks of not doing anything with her. I discussed the benefit of doing the procedure, I have discussed benefit of not doing the procedure. I have discussed the possibility of percutaneous nephrostomy tube insertion. After all these were entertained together, my recommendation is that we proceed with the above listed procedure and that is what we did. UROLOGY FINDINGS: 1. Normal bladder mucosa. 2. The stone, hydronephrosis, and insertion of a stent went without complication. DESCRIPTION OF PROCEDURE: After obtaining informed consent and discussing with the patient , I even discussed with her sometimes we do ureteroscopy, laser lithotripsy which basically is not even available here at [facility]. I discussed with her sometimes we could do something like a stone basketing, and I discussed with her that if we do a stone basketing but now with this large size stone and the stone location, I also then discussed with the patient, in this case with the sepsis, we just to want to drain the kidney. In fact, we were discussing with the infectious disease doctor explaining this all to the patient, the possibility of a nephrostomy tube insertion, not to do too much manipulations from below. We also discussed with the patient the risks, the benefits. We discussed sepsis. We discussed all these things at length, and after discussing and describing and as best as possible and answering many questions, my recommendation is for the above procedure. So, the patient was in a lithotomy position. Time-out was called to confirm the patient and positioning. The patient is on prophylactic antibiotics. In addition, we gave one extra dose of gentamicin, even though there is a positive culture with gram-positive cocci and gentamicin is generally used for gram-negative, I am manipulating the urinary tract, and I am concerned about urinary tract infection and blood borne sepsis, so I gave just one dose of gentamicin. We identified the ureteral orifice. We injected contrast into the retrograde pyelogram. We saved some of the films. We took the wire up to the kidney. Without difficulty, we confirmed our positioning and then we put a double-J stent, and we confirmed our positioning with no dangles, we cut those off. Exam under anesthesia was done, normal external genitalia, no pelvic or rectal masses despite what we see. The patient tolerated the procedure well without complication. I do want to mention that something on these films, because of the stone, there seems to be some kine of uterine fibroid. The CAT scan notes the presence of uterine fibroid. Of significant note, it seems to be more on the right side than a midline fibroid. From urology standpoint, I do not interfere with anything and do not do anything about it right now. I just want to make a mention of this uterine fibroids finding and await for the films to be read by the radiologist. Adebayo Gay MD [facility] # [id number]
--- NOTE | 2019-04-08 09:38 | RAD ---
Date of service: 04/06/2019 PROCEDURE: Intraoperative Fluoroscopy. HISTORY: STENT INSERTION RT FINDINGS: Fluoroscopic assistance was provided for retrograde pyelography and right ureteral stent insertion. A filling defect is appreciated at the mid right ureter likely reflecting calculus identified in prior abdomen pelvis CT 04/04/2019. Final images demonstrate placement of right double-J ureteral stent. Please refer to the operative report from RUSSELL Manzo, , MD [facility]. 19.8 sec of fluoro time utilized with a cumulative radiation dose of 7.34 mGy.
[2019-04-08] MEDS: cefTRIAXone 2 GM IN NS 2 GM/100 ML BAG IVPB SCH (10:49)
--- NOTE | 2019-04-08 12:41 | RAD ---
Date of service: 04/08/2019 HISTORY: Pulmonary congestion COMPARISON: Comparison made with chest radiograph 04/07/2019. TECHNIQUE: 1 view obtained. FINDINGS: LUNGS: Central pulmonary vasculature appears slightly less congested. Suspect minimal bibasilar atelectasis. PLEURA: No significant pleural effusion identified, no pneumothorax apparent. CARDIOVASCULAR: No aortic atherosclerotic calcification present. Normal cardiac size. No pulmonary vascular congestion. OSSEOUS STRUCTURES: No significant abnormalities. VISUALIZED UPPER ABDOMEN: Normal. OTHER FINDINGS: None. IMPRESSION: Central pulmonary vasculature appears slightly less congested. Suspect minimal bibasilar atelectasis.
--- NOTE | 2019-04-08 15:13 | PN ---
DATE: 04/08/2019 SUBJECTIVE: The patient is in bed in no acute distress, nontoxic. No fevers or chills. PHYSICAL EXAMINATION: VITAL SIGNS: On exam, temperature is 98, blood pressure is 140/70, respiratory rate of 16. HEENT: Examination of HEENT is unremarkable. NECK: Supple. LUNGS: Have decreased breath sounds. HEART: Normal S1, S2. ABDOMEN: Soft. LABORATORY DATA: Laboratory examination reveals a white count of 5.4. Sed rate is 72, BUN of 9, creatinine of 0.7. Repeat cultures are negative. We will check on the echo. ASSESSMENT AND PLAN: A 28-year-old female admitted with sepsis with group B strep bacteremia secondary to group B strep right pyelonephritis with a right obstructing kidney stone with right hydronephrosis on ceftriaxone. Repeat cultures are negative. Awaiting for echo. If the echo is negative, may be able to switch to p.o. antibiotics; p.o. Augmentin 875 p.o. b.i.d. x10 days, actually the group B strep is sensitive to ampicillin. We may be able to treat with ampicillin as another possibility. Delvin Garcia MD
--- NOTE | 2019-04-08 16:07 | CARD ---
APPROVED REPORT Date of service: 04/08/2019 EXAM: Two-dimensional and M-mode echocardiogram with Doppler and color Doppler. INDICATION Infection:Rule out subacute bacterial endocarditis 2D DIMENSIONS Left Atrium (2D)3.1 (1.6-4.0cm)IVSd1.2 (0.7-1.1cm) LVDd4.4 (3.9-5.9cm)PWd1.0 (0.7-1.1cm) LVDs2.9 (2.5-4.0cm)FS (%) 35.1 % LVEF (%)64.6 (>50%) M-Mode DIMENSIONS Aortic Root2.70 (2.2-3.7cm)Aortic Cusp Exc.1.60 (1.5-2.0cm) Aortic Valve AoV Peak [id number]/Arian Peak GR.9mmHg Mitral Valve E/A ratio0.0 TDI E/Lateral E'0.0E/Medial E'0.0 Tricuspid Valve TR Peak [id number] [id number] Peak Gr.17mmHg [id number] LEFT VENTRICLE The left ventricle is normal size. There is normal left ventricular wall thickness. The left ventricular function is normal. The left ventricular ejection fraction is within the normal range. There is normal LV segmental wall motion. Transmitral Doppler flow pattern is Grade I-abnormal relaxation pattern. RIGHT VENTRICLE The right ventricle is normal size. There is normal right ventricular wall thickness. The right ventricular systolic function is normal. ATRIA The left atrium size is normal. The right atrium size is normal. AORTIC VALVE The aortic valve is mildly thickened. No aortic regurgitation is present. There is no aortic valvular stenosis. MITRAL VALVE The mitral valve is mildly thickened. There is no mitral valve regurgitation noted. There is no mitral valve stenosis. TRICUSPID VALVE There is trace to mild tricuspid regurgitation. PULMONIC VALVE There is trace to mild pulmonic valvular regurgitation. GREAT VESSELS The aortic root is normal in size. The IVC is normal in size and collapses >50% with inspiration. <Conclusion> There is normal left ventricular wall thickness. The left ventricular function is normal. The left ventricular ejection fraction is within the normal range. There is normal LV segmental wall motion. Transmitral Doppler flow pattern is Grade I-abnormal relaxation pattern. There is trace to mild tricuspid regurgitation. There is trace to mild pulmonic valvular regurgitation. No vegitation seen
--- NOTE | 2019-04-08 17:06 | CP.PCM.DIS ---
<Navi Gibbons - Last Filed: 04/08/19 16:53> Provider - Provider Date of Admission: 04/05/19 00:36 Attending physician: Randall Rg MD Consults: 04/05/19 01:21 Physician Consult Routine Comment: Consulting Provider: Augustine Gay Consulting Physician: Augustine Gay Reason for Consult: Obstructing 7.8mm stone with hydro 04/05/19 01:24 Physician Consult Routine Comment: Consulting Provider: Steven Moncada Consulting Physician: Steven Moncada Reason for Consult: obstructing calculi with hydro & PNA Time Spent in preparation of Discharge (in minutes): 45 Hospital Course - Lab Results Lab Results: Micro Results 04/07/19 08:00 Blood Blood Culture - Preliminary NO GROWTH AFTER 24 HOURS 04/07/19 08:20 Blood Blood Culture - Preliminary NO GROWTH AFTER 24 HOURS 04/05/19 00:15 Blood Blood Culture - Final Strep Agalactiae Group B 04/05/19 00:15 Blood Gram Stain - Final 04/04/19 23:40 Blood Blood Culture - Final Strep Agalactiae Group B 04/04/19 23:40 Blood Gram Stain - Final 04/04/19 22:30 Urine,Clean Catch Urine Culture - Final Strep Agalactiae Group B Most Recent Lab Values WBC 5.4 10^3/uL (4.5-11.0) 04/08/19 05:30 RBC 4.25 10^6/uL (3.5-6.1) 04/08/19 05:30 Hgb 11.7 g/dL (12.0-16.0) L 04/08/19 05:30 Hct 35.9 % (36.0-48.0) L 04/08/19 05:30 MCV 84.5 fl (80.0-105.0) 04/08/19 05:30 MCH 27.5 pg (25.0-35.0) 04/08/19 05:30 MCHC 32.6 g/dl (31.0-37.0) 04/08/19 05:30 RDW 14.8 % (11.5-14.5) H 04/08/19 05:30 Plt Count 301 10^3/uL (120.0-450.0) 04/08/19 05:30 MPV 10.4 fl (7.0-11.0) 04/08/19 05:30 Neut % (Auto) 85.4 % (50.0-68.0) H 04/04/19 21:56 Lymph % (Auto) 8.8 % (22.0-35.0) L 04/04/19 21:56 [place] % (Auto) 5.6 % (1.0-6.0) 04/04/19 21:56 Eos % (Auto) 0.0 % (1.5-5.0) L 04/04/19 21:56 Baso % (Auto) 0.2 % (0.0-3.0) 04/04/19 21:56 Lymph # (Auto) 1.4 (1.2-3.4) 04/04/19 21:56 [place] # (Auto) 0.9 (0.1-0.6) H 04/04/19 21:56 Eos # (Auto) 0.0 (0.0-0.7) 04/04/19 21:56 Baso # (Auto) 0.03 K/mm3 (0.0-2.0) 04/04/19 21:56 Absolute Neuts (auto) 13.50 (1.4-6.5) H 04/04/19 21:56 ESR 72 mm/hr (0.0-20.0) H 04/07/19 06:30 Retic Count 0.53 % (0.5-1.5) 04/05/19 08:20 Haptoglobin 346.3 mg/dL (30.0-200.0) H 04/05/19 08:20 PT 16.9 SECONDS (9.4-12.5) H 04/04/19 21:56 INR 1.52 04/04/19 21:56 APTT 26.9 Seconds (26.9-38.3) 04/04/19 21:56 D-Dimer, Quantitative 2023 ng/mlDDU (0-243) H 04/04/19 21:56 pO2 44 mm/Hg (30-55) 04/04/19 21:55 VBG pH 7.47 (7.32-7.43) H 04/04/19 21:55 VBG pCO2 29.0 (40-60) L 04/04/19 21:55 VBG HCO3 21.1 mmol/l (21-28) 04/04/19 21:55 VBG Total CO2 22.0 mmol.L (22-28) 04/04/19 21:55 VBG O2 Sat (Calc) 81.9 % (40-65) H 04/04/19 21:55 VBG Base Excess -1.5 mmol/L (0.0-2.0) L 04/04/19 21:55 VBG Potassium 2.8 mmol/L (3.6-5.2) L 04/04/19 21:55 Sodium 132.0 mmol/L (132-148) 04/04/19 21:55 Chloride 100.0 mmol/L (98-107) 04/04/19 21:55 Glucose 97 mg/dl (65-105) 04/04/19 21:55 Lactate 1.6 mmol/L (0.7-2.1) 04/04/19 21:55 FiO2 21.0 % 04/04/19 21:55 Crit Value Called To Scout 04/04/19 21:55 Crit Value Called By Penny 04/04/19 21:55 Blood Gas Notified Time 220804/04/19 21:55 Sodium 136 mmol/L (132-148) 04/08/19 05:30 Potassium 3.9 mmol/L (3.6-5.0) 04/08/19 05:30 Chloride 104 mmol/L (98-107) 04/08/19 05:30 Carbon Dioxide 24 mmol/L (21-33) 04/08/19 05:30 Anion Gap 12 (10-20) 04/08/19 05:30 BUN 9 mg/dL (7-21) 04/08/19 05:30 Creatinine 0.7 mg/dl (0.7-1.2) 04/08/19 05:30 Est GFR ( Amer) > 60 04/08/19 05:30 Est GFR (Non-Af Amer) > 60 04/08/19 05:30 Random Glucose 106 mg/dL (70-110) 04/08/19 05:30 Calcium 9.1 mg/dL (8.4-10.5) 04/08/19 05:30 Magnesium 2.0 mg/dL (1.7-2.2) 04/05/19 08:15 Total Bilirubin 0.7 mg/dL (0.2-1.3) 04/08/19 05:30 Direct Bilirubin 2.3 mg/dL (0.0-0.4) H 04/05/19 08:15 AST 63 U/L (14-36) H 04/08/19 05:30 ALT 44 U/L (7-56) 04/08/19 05:30 Alkaline Phosphatase 229 U/L (38-126) H 04/08/19 05:30 Lactate Dehydrogenase 850 U/L (333-699) H 04/04/19 21:56 Total Creatine Kinase 23 U/L (35-230) L 04/04/19 21:56 Troponin I < 0.01 ng/mL 04/04/19 21:56 C-Reactive Protein 72.70 mg/L (0.0-9.9) H 04/07/19 06:30 NT-Pro-B Natriuret Pep 473 pg/mL (0-450) H 04/08/19 06:00 Total Protein 7.2 g/dL (5.8-8.3) 04/08/19 05:30 Total Protein (PEP) 5.4 g/dL (6.1-8.1) L 04/06/19 07:00 Albumin 3.2 g/dL (3.0-4.8) 04/08/19 05:30 Globulin 4.1 gm/dL 04/08/19 05:30 Albumin/Globulin Ratio 0.8 (1.1-1.8) L 04/08/19 05:30 Lipase 45 U/L (23-300) 04/04/19 21:56 Procalcitonin 3.07 NG/ML (0.19-0.49) H 04/05/19 02:00 Venous Blood Potassium 2.8 mmol/L (3.6-5.2) L 04/04/19 21:55 Urine Color Yellow (YELLOW) 04/04/19 21:56 Urine Appearance Slight-cloudy (CLEAR) 04/04/19 21:56 Urine pH 6.5 (4.7-8.0) 04/04/19 21:56 Ur Specific [place] 1.010 (1.005-1.035) 04/04/19 21:56 Urine Protein 30 mg/dL (<30 mg/dL) H 04/04/19 21:56 Urine Glucose (UA) Negative mg/dL (NEGATIVE) 04/04/19 21:56 Urine Ketones 15 mg/dL (NEGATIVE) H 04/04/19 21:56 Urine Blood Moderate (NEGATIVE) H 04/04/19 21:56 Urine Nitrate Negative (NEGATIVE) 04/04/19 21:56 Urine Bilirubin Small (NEGATIVE) H 04/04/19 21:56 Urine Urobilinogen 2.0 E.U./dL (<1 E.U./dL) H 04/04/19 21:56 Ur Leukocyte Esterase Large Yovani/uL (NEGATIVE) H 04/04/19 21:56 Urine RBC 5 - 10 /hpf (0-2) H 04/04/19 21:56 Urine WBC 15 - 20 /hpf (0-6) H 04/04/19 21:56 Ur Epithelial Cells 4 - 5 /hpf (0-5) 04/04/19 21:56 Urine Bacteria Mod /hpf (NONE) 04/04/19 21:56 HIV 1&2 Ag/Ab, 4th Gen Nonreactive (Nonreactive) 04/05/19 08:20 Ur L.pneumophila Ag Negative (NEGATIVE) 04/05/19 08:00 Mycoplasma pneumon IgM Negative (NEGATIVE) 04/06/19 07:00 - Hospital Course Hospital Course: Navi Gibbons, PGY-1, Internal Medicine Discharge Summary for Dr. Rg 28 year old female with no significant past medical history presented with back pain, fever, and vomiting for 2 weeks. Symptoms were worse the past few days prior to admission. She went to urgent care center 3 days prior to admission and was given ibuprofen, flexeril, and steroid injection for her lower back pain. She said her pain, fever, and vomiting did not improve. She denied sick contacts. In addition, she had pleuritic chest pain due to cough. Upon admission, patient was febrile at 101.4 and had leukocytosis at 15.8. UA showed large leukocyte esterase, negative ntirate, and 15-20 WBC. Patient was started on IV fluids at 100 cc/hr, rocephin and azithromycin for coverage of UTI and CAP. In addition, D-dimer was elevated at 2022 so CTA of chest was performed which ruled out PE. However, patchy opacities in left lower lobe was seen, which contributed to possible CAP diagnosis. CT Abdomen and Pelvis was done which showed obstructive proximal right ureteral 8x6 mm calculus causing mild to moderate right hydroureteronephrosis. Azithromycin was stopped and ceftriaxone was continued as suspicion was UTI was higher. Blood and urine culture were positive for strep agalactiae, and as a result, bacteremia was likely 2/2 to UTI. Patient was continued on ceftriaxone. For obstructive nephrolithiasis, Dr. Gay placed stent on 04/06 to assist with removal of renal calculi. Patient was started on flomax 0.4, morphine 2 Q6 for pain, and zofran 4 Q4 for nausea. Patient also had mild transaminitis. Abdominal ultrasound showed hepatosplenomegaly, mild right hydronephrosis, and right nephrolithiasis. Patient also had elevated haptoglobin, normal retic count, and elevated LDH which was not consistent with hemolytic anemia. Patient had shortness of breath on 04/07 and chest X ray showed vascular congestion. Patient was given lasix 40 mg and IV fluids were stopped with resolution of shortness of breath symptoms. Echocardiogram was performed today to rule out endocarditis as patient had positive blood cultures. Endocarditis was ruled out as echocardiogram showed LVEF of 64.6% and no vegetations. Patient was found to be stable and ready for discharge. Patient was found to be stable and ready for discharge. Patient was told to follow up with PCP within 3-5 days. Patient was told to take augmentin 1 tab Q12 for 10 days. Patient was told to take all medications as prescribed. Patient was told to return to the emergency room if she had any new or concerning symptoms. This is a brief summary of the events that occurred during this hospital visit. For more information, please refer to hospital documentation Discharge diagnoses Sepsis 2/2 to UTI Obstructive nephrolithiasis Shortness of breath 2/2 to pulmonary congestion Transaminitis 2/2 to hepatosplenomegaly Nonspecific elevated D-dimer - Date & Time of H&P Date of H&P: 04/05/19 Time of H&P: 01:58 Discharge Exam - Head Exam Head Exam: ATRAUMATIC, NORMAL INSPECTION, NORMOCEPHALIC - Eye Exam Eye Exam: EOMI, PERRL - Respiratory Exam Respiratory Exam: Clear to PA & Lateral, NORMAL BREATHING PATTERN. absent: Rales, Rhonchi, Wheezes - Cardiovascular Exam Cardiovascular Exam: REGULAR RHYTHM, RRR, +S1, +S2. absent: Clicks, Gallop, Rubs - GI/Abdominal Exam GI & Abdominal Exam: Normal Bowel Sounds, Soft. absent: Distended, Firm, Guarding, Tenderness - Back Exam Back exam: absent: CVA tenderness (L), CVA tenderness (R) - Neurological Exam Neurological exam: Alert, CN II-XII Intact, Normal Gait, Oriented x3 - Psychiatric Exam Psychiatric exam: Normal Affect, Normal Mood - Skin Skin Exam: Dry, Intact, Normal Color Discharge Plan - Discharge Medications Prescriptions: Amoxicillin/Clavulanate [Augmentin 875 MG-125 MG] 1 tab PO Q12 10 Days #20 tab Tamsulosin [Flomax] 0.4 mg PO DAILY 14 Days #14 cap - Follow Up Plan Condition: STABLE Disposition: HOME/ ROUTINE Instructions: Pneumonia, Adult (DC), Urinary Tract Infection in Women (DC) Additional Instructions: Please follow up with your primary care doctor within 3-5 days. Please take all medications as prescribed. Please take augmentin twice a day for 10 days. Please return to the emergency department if you have any new or concerning symptoms. Referrals: Meg Moore MD [Family Provider] - <Randall Rg - Last Filed: 04/09/19 14:55> Provider - Provider Date of Admission: 04/05/19 00:36 Attending physician: Randall Rg MD Consults: 04/05/19 01:21 Physician Consult Routine Comment: Consulting Provider: Augustine Gay Consulting Physician: Augustine Gay Reason for Consult: Obstructing 7.8mm stone with hydro 04/05/19 01:24 Physician Consult Routine Comment: Consulting Provider: Steven Moncada Consulting Physician: Steven Moncada Reason for Consult: obstructing calculi with hydro & PNA Hospital Course - Lab Results Lab Results: Micro Results 04/07/19 08:00 Blood Blood Culture - Preliminary NO GROWTH AFTER 48 HOURS 04/07/19 08:20 Blood Blood Culture - Preliminary NO GROWTH AFTER 48 HOURS 04/05/19 00:15 Blood Blood Culture - Final Strep Agalactiae Group B 04/05/19 00:15 Blood Gram Stain - Final 04/04/19 23:40 Blood Blood Culture - Final Strep Agalactiae Group B 04/04/19 23:40 Blood Gram Stain - Final 04/04/19 22:30 Urine,Clean Catch Urine Culture - Final Strep Agalactiae Group B Most Recent Lab Values WBC 5.4 10^3/uL (4.5-11.0) 04/08/19 05:30 RBC 4.25 10^6/uL (3.5-6.1) 04/08/19 05:30 Hgb 11.7 g/dL (12.0-16.0) L 04/08/19 05:30 Hct 35.9 % (36.0-48.0) L 04/08/19 05:30 MCV 84.5 fl (80.0-105.0) 04/08/19 05:30 MCH 27.5 pg (25.0-35.0) 04/08/19 05:30 MCHC 32.6 g/dl (31.0-37.0) 04/08/19 05:30 RDW 14.8 % (11.5-14.5) H 04/08/19 05:30 Plt Count 301 10^3/uL (120.0-450.0) 04/08/19 05:30 MPV 10.4 fl (7.0-11.0) 04/08/19 05:30 Neut % (Auto) 85.4 % (50.0-68.0) H 04/04/19 21:56 Lymph % (Auto) 8.8 % (22.0-35.0) L 04/04/19 21:56 [place] % (Auto) 5.6 % (1.0-6.0) 04/04/19 21:56 Eos % (Auto) 0.0 % (1.5-5.0) L 04/04/19 21:56 Baso % (Auto) 0.2 % (0.0-3.0) 04/04/19 21:56 Lymph # (Auto) 1.4 (1.2-3.4) 04/04/19 21:56 [place] # (Auto) 0.9 (0.1-0.6) H 04/04/19 21:56 Eos # (Auto) 0.0 (0.0-0.7) 04/04/19 21:56 Baso # (Auto) 0.03 K/mm3 (0.0-2.0) 04/04/19 21:56 Absolute Neuts (auto) 13.50 (1.4-6.5) H 04/04/19 21:56 ESR 72 mm/hr (0.0-20.0) H 04/07/19 06:30 Retic Count 0.53 % (0.5-1.5) 04/05/19 08:20 Haptoglobin 346.3 mg/dL (30.0-200.0) H 04/05/19 08:20 PT 16.9 SECONDS (9.4-12.5) H 04/04/19 21:56 INR 1.52 04/04/19 21:56 APTT 26.9 Seconds (26.9-38.3) 04/04/19 21:56 D-Dimer, Quantitative 2023 ng/mlDDU (0-243) H 04/04/19 21:56 pO2 44 mm/Hg (30-55) 04/04/19 21:55 VBG pH 7.47 (7.32-7.43) H 04/04/19 21:55 VBG pCO2 29.0 (40-60) L 04/04/19 21:55 VBG HCO3 21.1 mmol/l (21-28) 04/04/19 21:55 VBG Total CO2 22.0 mmol.L (22-28) 04/04/19 21:55 VBG O2 Sat (Calc) 81.9 % (40-65) H 04/04/19 21:55 VBG Base Excess -1.5 mmol/L (0.0-2.0) L 04/04/19 21:55 VBG Potassium 2.8 mmol/L (3.6-5.2) L 04/04/19 21:55 Sodium 132.0 mmol/L (132-148) 04/04/19 21:55 Chloride 100.0 mmol/L (98-107) 04/04/19 21:55 Glucose 97 mg/dl (65-105) 04/04/19 21:55 Lactate 1.6 mmol/L (0.7-2.1) 04/04/19 21:55 FiO2 21.0 % 04/04/19 21:55 Crit Value Called To Scout 04/04/19 21:55 Crit Value Called By Penny 04/04/19 21:55 Blood Gas Notified Time 220804/04/19 21:55 Sodium 136 mmol/L (132-148) 04/08/19 05:30 Potassium 3.9 mmol/L (3.6-5.0) 04/08/19 05:30 Chloride 104 mmol/L (98-107) 04/08/19 05:30 Carbon Dioxide 24 mmol/L (21-33) 04/08/19 05:30 Anion Gap 12 (10-20) 04/08/19 05:30 BUN 9 mg/dL (7-21) 04/08/19 05:30 Creatinine 0.7 mg/dl (0.7-1.2) 04/08/19 05:30 Est GFR ( Amer) > 60 04/08/19 05:30 Est GFR (Non-Af Amer) > 60 04/08/19 05:30 Random Glucose 106 mg/dL (70-110) 04/08/19 05:30 Calcium 9.1 mg/dL (8.4-10.5) 04/08/19 05:30 Magnesium 2.0 mg/dL (1.7-2.2) 04/05/19 08:15 Total Bilirubin 0.7 mg/dL (0.2-1.3) 04/08/19 05:30 Direct Bilirubin 2.3 mg/dL (0.0-0.4) H 04/05/19 08:15 AST 63 U/L (14-36) H 04/08/19 05:30 ALT 44 U/L (7-56) 04/08/19 05:30 Alkaline Phosphatase 229 U/L (38-126) H 04/08/19 05:30 Lactate Dehydrogenase 850 U/L (333-699) H 04/04/19 21:56 Total Creatine Kinase 23 U/L (35-230) L 04/04/19 21:56 Troponin I < 0.01 ng/mL 04/04/19 21:56 C-Reactive Protein 72.70 mg/L (0.0-9.9) H 04/07/19 06:30 NT-Pro-B Natriuret Pep 473 pg/mL (0-450) H 04/08/19 06:00 Total Protein 7.2 g/dL (5.8-8.3) 04/08/19 05:30 Total Protein (PEP) 5.4 g/dL (6.1-8.1) L 04/06/19 07:00 Albumin 3.2 g/dL (3.0-4.8) 04/08/19 05:30 Albumin (PEP) 2.3 g/dL (3.8-4.8) L 04/06/19 07:00 Globulin 4.1 gm/dL 04/08/19 05:30 Albumin/Globulin Ratio 0.8 (1.1-1.8) L 04/08/19 05:30 Sbgth-4-Upltujrxk 0.5 g/dL (0.2-0.3) H 04/06/19 07:00 Pwcjm-4-Nqemkqnvm 0.9 g/dL (0.5-0.9) 04/06/19 07:00 Mknn-2-Capsoxpp 0.4 g/dL (0.4-0.6) 04/06/19 07:00 Agfr-4-Mgtkeclo 0.3 g/dL (0.2-0.5) 04/06/19 07:00 Gamma Globulins 1.1 g/dL (0.8-1.7) 04/06/19 07:00 Abnorm Protein Band 1 TEST NOT PERFORMED 04/06/19 07:00 Abnorm Protein Band 2 TEST NOT PERFORMED 04/06/19 07:00 Abnorm Protein Band 3 TEST NOT PERFORMED 04/06/19 07:00 Lipase 45 U/L (23-300) 04/04/19 21:56 Procalcitonin 3.07 NG/ML (0.19-0.49) H 04/05/19 02:00 Venous Blood Potassium 2.8 mmol/L (3.6-5.2) L 04/04/19 21:55 Urine Color Yellow (YELLOW) 04/04/19 21:56 Urine Appearance Slight-cloudy (CLEAR) 04/04/19 21:56 Urine pH 6.5 (4.7-8.0) 04/04/19 21:56 Ur Specific [place] 1.010 (1.005-1.035) 04/04/19 21:56 Urine Protein 30 mg/dL (<30 mg/dL) H 04/04/19 21:56 Urine Glucose (UA) Negative mg/dL (NEGATIVE) 04/04/19 21:56 Urine Ketones 15 mg/dL (NEGATIVE) H 04/04/19 21:56 Urine Blood Moderate (NEGATIVE) H 04/04/19 21:56 Urine Nitrate Negative (NEGATIVE) 04/04/19 21:56 Urine Bilirubin Small (NEGATIVE) H 04/04/19 21:56 Urine Urobilinogen 2.0 E.U./dL (<1 E.U./dL) H 04/04/19 21:56 Ur Leukocyte Esterase Large Yovani/uL (NEGATIVE) H 04/04/19 21:56 Urine RBC 5 - 10 /hpf (0-2) H 04/04/19 21:56 Urine WBC 15 - 20 /hpf (0-6) H 04/04/19 21:56 Ur Epithelial Cells 4 - 5 /hpf (0-5) 04/04/19 21:56 Urine Bacteria Mod /hpf (NONE) 04/04/19 21:56 MARYLU & SPEP Interp See note 04/06/19 07:00 ESPERANZA Screen Negative (Negative) 04/06/19 07:00 HIV 1&2 Ag/Ab, 4th Gen Nonreactive (Nonreactive) 04/05/19 08:20 Ur L.pneumophila Ag Negative (NEGATIVE) 04/05/19 08:00 Mycoplasma pneumon IgG 4.35 (<=0.90) H 04/06/19 07:00 Mycoplasma pneumon IgM Negative (NEGATIVE) 04/06/19 07:00 Attending/Attestation - Attestation I have personally seen and examined this patient.: Yes I have fully participated in the care of the patient.: Yes I have reviewed all pertinent clinical information, including history, physical exam and plan: Yes Notes (Text): 04/09/19 14:45 Patient was seen and examined with medical lab assistant. 28 year old female with no significant past medical history was admitted with right sided flank pain, fever and cough. UA was suggestive of UTI. CT abdomen and Pelvis showed obstructive proximal right ureteral calculus with mild to moderate right hydroureteronephrosis, large fibroid uterus and possible left lower lobe infiltrate. She was initailly treated with broad spectum antibiotics. Procalcitonin was elevated. Blood cultures and urine cultures grew group B strep agalactiae. Patient antibiotic was changed to ceftriaxone. Patient was evaluated by Urology and undwerwent cystoscopy with right ureter stent placement. Repeat blood cultures are negative. Echo showed normal systolic function and there is no evidence of vegetation. Patient is afebrile.She is on room air and is ambulatory, ID has recommended 2 weeks of oral Augmentin, She will be discharged home and will follow up with PCP. Management plan was discussed in detail with patient. Education was provided.
[2019-04-08 17:07] VITALS: BP 126/90; PULSE 92; RESP 19; TEMP 98.2
[2019-04-09 07:28] LABS: ALBUMIN (PEP) 2.3 g/dL (3.8-4.8); ALPHA-1-GLOBULIN (PEP) 0.5 g/dL (0.2-0.3)
[2019-04-09] MEDS ORDERED: Pantoprazole 40 mg EC Tab PO SCH (07:30)
== END 2019-04-08 18:00 | disposition home or self-care (01) | DRG 584 ==
LOC: ED 20:48 → ERH 04-05 00:36 → 2RSO 04-05 03:42 → 3RSO 04-07 12:04
PROVIDERS: ADMIT Internal Medicine; ATTEND Internal Medicine
PROC: BT1D1ZZ Fluoroscopy of Right Kidney, Ureter and Bladder using Low Osmolar Contrast (ICD-10-PCS; 2019-04-06)
PROC: 0T768DZ Dilation of Right Ureter with Intraluminal Device, Via Natural or Artificial Opening Endoscopic (ICD-10-PCS; principal; 2019-04-06 08:35)
DX: A40.1 Sepsis due to streptococcus, group B (principal); J18.9 Pneumonia, unspecified organism; N13.6 Pyonephrosis; E87.6 Hypokalemia; D25.9 Leiomyoma of uterus, unspecified; K76.0 Fatty (change of) liver, not elsewhere classified; R16.2 Hepatomegaly with splenomegaly, not elsewhere classified; D64.9 Anemia, unspecified; Z87.891 Personal history of nicotine dependence